=== PATIENT | female | born 1985 | race African-American/Black ===

== ENCOUNTER 2016-04-18 | Outpatient (CLI) | payer MEDICAID | END 2016-04-18 01:27 | disposition critical access hospital (66) | CPT/HCPCS: A0425; A0429 ==

== ENCOUNTER 2016-04-18 01:41 | Day surgery (SDC) | payer MEDICAID ==
[2016-04-18] MEDS ORDERED: ONDANSETRON 4 MG/2 ML VIAL IVP STA ×3 (02:47→07:32)
[2016-04-18] MEDS ORDERED: HYDROmorphone 1 MG/ML SYRINGE IVP STA ×3 (02:47→07:32)
[2016-04-18] MEDS ORDERED: ONDANSETRON 4 MG/2 ML VIAL ONE ×4 (03:19→13:21)
[2016-04-18] MEDS ORDERED: HYDROmorphone 1 MG/ML SYRINGE ONE ×3 (03:19→07:34)
[2016-04-18] MEDS ORDERED: IOPAMIDOL-300 100 ML VIAL IVP ONE (05:06)
[2016-04-18] MEDS ORDERED: LACTATED RINGERS 1,000 ML IV STA (07:38)
[2016-04-18] MEDS ORDERED: fentaNYL 100 MCG/2 ML VIAL IVP ONE (09:35)
[2016-04-18] MEDS ORDERED: ROCURONIUM 50 MG/5 ML VIAL IVP ONE (09:35)
[2016-04-18] MEDS ORDERED: DEXAMETHASONE 4 MG/ML VIAL IVP ONE (09:35)
[2016-04-18] MEDS ORDERED: SUCCINYLCHOLINE 200 MG/10 ML VIAL IVP ONE (09:35)
[2016-04-18] MEDS ORDERED: MIDAZOLAM 2 MG/2 ML VIAL IVP ONE (09:35)
[2016-04-18] MEDS ORDERED: GLYCOPYRROLATE 1 MG/5 ML VIAL IVP ONE (09:35)
[2016-04-18] MEDS ORDERED: LIDOCAINE-MPF 2% 5 ML VIAL IM ONE (09:35)
[2016-04-18] MEDS ORDERED: ONDANSETRON 4 MG/2 ML VIAL IVP ONE (09:35)
[2016-04-18] MEDS ORDERED: PROPOFOL 200 MG/20 ML VIAL IVP ONE (09:35)
[2016-04-18] MEDS ORDERED: LIDOCAINE MPF 1%-EPI 1:200000 30 ML VIAL SUBQ ONE (09:55)
[2016-04-18] MEDS ORDERED: LACTATED RINGERS 1,000 ML IV ONE ×4 (10:02→11:28)
[2016-04-18] MEDS: LORazepam 2 MG/ML SYRINGE ONE ×2 (10:48→10:55)
[2016-04-18] MEDS ORDERED: MEPERIDINE 50 MG/ML SYRINGE ONE (10:51)
[2016-04-18] MEDS ORDERED: ALBUTEROL NEB 2.5 MG/3 ML INH ONE (11:02)
[2016-04-18] MEDS ORDERED: HYDROcod/ACETAM 5/325 MG TABLET ONE (12:29)
== END 2016-04-18 07:31 | disposition home or self-care (01) ==
PROC: 0W3R4ZZ Control Bleeding in Genitourinary Tract, Percutaneous Endoscopic Approach (ICD-10-PCS; principal; 2016-04-18 08:45)
DX: N83.202 Unspecified ovarian cyst, left side (principal); K66.1 Hemoperitoneum; F17.200 Nicotine dependence, unspecified, uncomplicated; K59.00 Constipation, unspecified
CPT/HCPCS: 36415; 51702; 58662; 74177; 76830; 76856; 80053; 81003; 81025; 83690; 85025; 93975; 96374; 96375; 96376; 99284; 99285; A9270; J1170; J2060; J7120; J7613; Q9967

== ENCOUNTER 2016-07-16 12:43 | Outpatient (CLI) | payer MEDICAID, OTHER | END 2016-07-16 12:44 | disposition critical access hospital (66) | DX: M54.9 Dorsalgia, unspecified (principal); M25.512 Pain in left shoulder; M79.605 Pain in left leg; R20.0 Anesthesia of skin; V09.00XA Pedestrian injured in nontraffic accident involving unspecified motor vehicles, initial encounter; Y93.01 Activity, walking, marching and hiking; Y92.480 Sidewalk as the place of occurrence of the external cause | CPT/HCPCS: A0425; A0429 ==

== ENCOUNTER 2016-07-16 12:59 | Emergency (ER) | payer MEDICAID ==
[2016-07-16] MEDS ORDERED: HYDROcod/ACETAM 5/325 MG TABLET PO STA (13:50)
[2016-07-16] MEDS ORDERED: HYDROcod/ACETAM 5/325 MG TABLET ONE (13:58)
== END 2016-07-16 16:52 | disposition home or self-care (01) ==
DX: M54.2 Cervicalgia (principal); M54.5 Low back pain; R07.89 Other chest pain; M79.602 Pain in left arm; M79.605 Pain in left leg; R20.0 Anesthesia of skin; V03.90XA Pedestrian on foot injured in collision with car, pick-up truck or van, unspecified whether traffic or nontraffic accident, initial encounter; R03.0 Elevated blood-pressure reading, without diagnosis of hypertension; F17.200 Nicotine dependence, unspecified, uncomplicated
CPT/HCPCS: 36415; 72125; 72128; 72131; 72141; 73080; 73552; 80053; 83690; 84703; 85025; 85610; 99283; 99284; A9270

== ENCOUNTER 2018-06-12 20:58 | Emergency (ER) | payer MEDICAID ==
--- NOTE | 2018-06-12 21:21 | ED Physician Documentation ---
PD HPI URI - Stated complaint Stated Complaint: FLU SYMP - Chief complaint Chief Complaint: General - History obtained from History obtained from: Patient - History of Present Illness Timing - onset: How many weeks ago (2) Timing duration: Weeks (2) Timing details: Abrupt onset, Still present (Some symptoms are decreasing but still has some diarrhea and increasing cough. Today's feeling weaker and shaky and somewhat lightheaded at work.) Associated symptoms: Fever, Chills, Productive cough, NVD Contributing factors: No: Sick contact, Travel, Immunocompromised Similar symptoms before: Has not had sx before Recently seen: Not recently seen Review of Systems Constitutional: reports: Fever (decreasing), Chills, Myalgias Nose: reports: Congestion Throat: denies: Sore throat Respiratory: reports: Dyspnea, Cough. denies: Wheezing GI: reports: Nausea, Vomiting, Diarrhea PD PAST MEDICAL HISTORY - Past Medical History Cardiovascular: None Respiratory: None Neuro: None Endocrine/Autoimmune: None - Past Surgical History Past Surgical History: Yes - Present Medications Home Medications: Ambulatory Orders Medication Instructions Recorded Confirmed HYDROcod/ACETAM 5/325 [[place] 5/325] 1 - 2 ea PO Q6H PRN #15 tablet 07/16/16 Benzonatate [Tessalon Perle] 100 mg PO TID PRN #20 capsule 06/12/18 Dexamethasone [Decadron] 4 mg PO DAILY #5 tablet 06/12/18 Diphenoxylate/Atropine [Lomotil] 1 each PO QID PRN #20 tablet 06/12/18 Doxycycline Hyclate 100 mg PO BID #14 capsule 06/12/18 Ondansetron Odt [Zofran] 4 mg TL Q6H PRN #15 tablet 06/12/18 - Allergies Allergies/Adverse Reactions: Allergies Allergy/AdvReac Type Severity Reaction Status Date / Time ibuprofen AdvReac Unknown Verified 06/12/18 21:11 - Social History Does the pt smoke?: Yes Smoking Status: Current every day smoker Does the pt drink ETOH?: No Does the pt have substance abuse?: No - Immunizations Immunizations are current?: Yes PD ED PE NORMAL - Vitals Vital signs reviewed: Yes - General General: Alert and oriented X 3, No acute distress, Well developed/nourished - HEENT HEENT: Ears normal, Pharynx benign - Neck Neck: Supple, no meningeal sign, No adenopathy - Cardiac Cardiac: RRR, No murmur - Respiratory Respiratory: Clear bilaterally - Abdomen Abdomen: Soft, Non tender - Back Back: No CVA TTP - Derm Derm: Normal color, Warm and dry - Neuro Neuro: Alert and oriented X 3, No motor deficit, Normal speech Results - Vitals Vitals: Vital Signs - 24 hr 06/12/18 06/12/18 21:08 22:06 Temperature 37.0 C 37.0 C Heart Rate 77 74 Respiratory 18 14 Rate Blood Pressure 120/73 116/67 O2 Saturation 100 98 Oxygen O2 Source Room air - Labs Labs: Laboratory Tests 06/12/18 19:14 Influenza A (Rapid) Negative Influenza B (Rapid) Negative PD MEDICAL DECISION MAKING - ED course Complexity details: considered differential (Her symptoms sound predominantly like flu with the fevers achiness nausea and diarrhea. Those are tapering. However she has had a cough continuing to has increased with that over the last several days and is productive now. It sounds potentially like a secondary infection.), d/w patient Departure - Departure Disposition: 01 Home, Self Care Clinical Impression: Flu-like symptoms Bronchitis, acute Qualifiers: Bronchitis organism: unspecified organism Qualified Code(s): J20.9 - Acute bronchitis, unspecified Diarrhea Qualifiers: Diarrhea type: presumed infectious Qualified Code(s): R19.7 - Diarrhea, unspecified Condition: Stable Record reviewed to determine appropriate education?: Yes Instructions: ED Upper Resp Infec Abx Tx, ED Flu Follow-Up: Candice Key DNP [Primary Care Provider] - Prescriptions: Benzonatate [Tessalon Perle] 100 mg PO TID PRN #20 capsule PRN Reason: Cough Dexamethasone [Decadron] 4 mg PO DAILY #5 tablet Diphenoxylate/Atropine [Lomotil] 1 each PO QID PRN #20 tablet PRN Reason: Diarrhea Doxycycline Hyclate 100 mg PO BID #14 capsule Ondansetron Odt [Zofran] 4 mg TL Q6H PRN #15 tablet PRN Reason: Nausea / Vomiting Comments: Your main symptoms sound flulike. Your flu test here is negative but is not completely accurate and your symptoms still sound like the flu. As such treatment is largely supportive and targeted at symptoms. However your cough is been going on consistently enough longer than you expect for just the flu and so I think there may be some secondary infection causing the bronchial symptoms worsening. Your lungs sound clear and oxygen level is good, so does not sound like pneumonia. For the bronchial part of this, use the Decadron steroid anti-inflammatory as well as Tessalon if needed for cough. Will add doxycycline antibiotic for a week. Ondansetron if needed for nausea. Lomotil for diarrhea as needed. Rest off work for couple of days. Return as improving. Forms: Activity restrictions
[2018-06-12] MEDS ORDERED: ONDANSETRON ODT 4 MG TABLET TL STA (21:44)
[2018-06-12] MEDS ORDERED: DIPHENOX/ATROPINE 2.5/0.025 MG TABLET PO STA (21:44)
[2018-06-12] MEDS ORDERED: ONDANSETRON ODT 4 MG Prepack 2 TL PRN (21:44)
[2018-06-12] MEDS ORDERED: ACETAMINOPHEN 325 MG TABLET PO STA (21:44)
[2018-06-12] MEDS ORDERED: DEXAMETHASONE 10 MG/ML VIAL PO STA (21:44)
[2018-06-12] MEDS ORDERED: DOXYCYCLINE 100 MG TABLET PO STA (21:44)
[2018-06-12 22:07] VITALS: BP 116/67
== END 2018-06-12 22:26 | disposition home or self-care (01) ==
LOC: ED 20:58
DX: J20.9 Acute bronchitis, unspecified (principal); R19.7 Diarrhea, unspecified; R50.9 Fever, unspecified; R53.1 Weakness; R11.0 Nausea; F17.200 Nicotine dependence, unspecified, uncomplicated
CPT/HCPCS: 87275; 87276; 99283; A9270; Q0162

== ENCOUNTER 2018-11-07 10:11 | Outpatient (CLI) | payer MEDICAID ==
[2018-11-07 12:18] LABS: BASOPHILS # (AUTO) 0.1 10^3/uL (0.0-0.1); BASOPHILS % (AUTO) 0.8 %; EOSINOPHILS # (AUTO) 0.3 10^3/uL (0.0-0.7); EOSINOPHILS % (AUTO) 3.2 %; HGB - HEMOGLOBIN 14.2 g/dL (12.0-16.0); LYMPHOCYTES # (AUTO) 1.8 10^3/uL (1.5-3.5); LYMPHOCYTES % (AUTO) 23.5 %; MEAN CORPUSCULAR HEMOGLOBIN 31.7 pg (27.0-31.0); MEAN CORPUSCULAR HGB CONC 32.5 g/dL (32.0-36.0); MEAN CORPUSCULAR VOLUME 97.5 fL (81.0-99.0); MEAN PLATELET VOLUME 10.1 fL (7.9-10.8); MONOCYTES # (AUTO) 0.6 10^3/uL (0.0-1.0); NEUTROPHILS # (AUTO) 5.1 10^3/uL (1.5-6.6); NEUTROPHILS % (AUTO) 64.4 %; PLT - PLATELET COUNT 301 10^3/uL (130-450); RED BLOOD COUNT 4.48 10^6/uL (4.20-5.40); RED CELL DISTRIBUTION WIDTH 12.6 % (12.0-15.0); WHITE BLOOD COUNT 7.8 x10^3/uL (4.8-10.8)
[2018-11-07 12:53] LABS: ALBUMIN 4.3 g/dL (3.2-5.5); ALBUMIN/GLOBULIN RATIO 1.1 (1.0-2.2); ALKALINE PHOSPHATASE 70 IU/L (42-121); ALT ALANINE AMINOTRANSFERASE 14 IU/L (10-60); AST ASPARTATE AMINOTRANSFERASE 30 IU/L (10-42); BILIRUBIN,TOTAL 0.8 mg/dL (0.2-1.0); BUN - BLOOD UREA NITROGEN 5 mg/dL (6-20); CALCIUM 9.5 mg/dL (8.5-10.3); CARBON DIOXIDE - CO2 28 mmol/L (21-32); CHLORIDE 102 mmol/L (101-111); CHOL/HDL RATIO 2.2 (<4.4); CHOLESTEROL 164 mg/dL; CREATININE 0.9 mg/dL (0.4-1.0); GFR - MDRD 87 (>89); GLUCOSE 69 mg/dL (70-100); HDL CHOLESTEROL 75 mg/dL; LDL CHOLESTEROL,CALCULATED 73 mg/dL; SODIUM 143 mmol/L (135-145); TOTAL PROTEIN 8.1 g/dL (6.7-8.2); VLDL CHOLESTEROL 16 mg/dL
== END 2018-11-07 23:59 | disposition home or self-care (01) ==
LOC: LAB.N 10:11
PROVIDERS: ATTEND Nurse Practitioner Gerontology
DX: Z13.9 Encounter for screening, unspecified (principal)
CPT/HCPCS: 36415; 80053; 80061; 83721; 84443; 85025

== ENCOUNTER 2018-12-26 12:36 | Outpatient (CLI) | payer MEDICAID | END 2018-12-26 12:37 | disposition critical access hospital (66) | LOC: EMS 12:36 | PROVIDERS: ATTEND Surgery | DX: R45.851 Suicidal ideations (principal) | CPT/HCPCS: A0425; A0429; A0999 ==

== ENCOUNTER 2018-12-26 12:58 | Emergency (ER) | payer MEDICAID ==
--- NOTE | 2018-12-26 13:11 | ED Physician Documentation ---
PD HPI MHE - Stated complaint Stated Complaint: SI - History obtained from History obtained from: Patient, EMS - History of Present Illness Primary symptom: Suicide attempt (hanging with a belt in the closet) Timing - onset: How many hours ago (2) Pain level max: 0 Pain level now: 0 Similar symptoms before: Diagnosis (depression, bipolar) Recently seen: Not recently seen - Additional information Additional information: 33-year-old female states that she has been diagnosed with "stage III" depression. She also states that she has a history of bipolar disorder. She had a suicide attempt in 2008 when she was living in [place]. Attempted to take muscle relaxants. She moved here in 2013. Has a primary care provider, but has not seen a therapist or psychiatrist. She is on fluoxetine. She was home alone today when she attempted to hang herself using a belt in the closet. She states that she "may have blacked out". She states that she called 911 for help. Currently she does not feel safe and does not feel like she can keep herself safe. She has 2 children, 16 and 14. Lives with her boyfriend as well. Per police statement, the patient stated that she called 911 because it was "taking too long to kill herself". Patient also relates feeling homicidal tow ards the boyfriend and her children. She stated this to the nurse. She also states that she does not want to be here and wants to leave. Review of Systems Ten Systems: 10 systems reviewed and negative Constitutional: denies: Fever, Chills Ears: denies: Ear pain Nose: denies: Rhinorrhea / runny nose, Congestion Throat: denies: Sore throat Cardiac: denies: Chest pain / pressure Respiratory: denies: Cough GI: denies: Nausea, Vomiting, Diarrhea : denies: Dysuria, Now EGA Skin: denies: Rash Musculoskeletal: denies: Neck pain, Back pain Neurologic: denies: Focal weakness, Numbness, Headache PD PAST MEDICAL HISTORY - Past Medical History Cardiovascular: None Respiratory: None Neuro: None Endocrine/Autoimmune: None - Past Surgical History 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) - Present Medications Home Medications: Ambulatory Orders Medication Instructions Recorded Confirmed FLUoxetine [PROzac] 20 mg PO DAILY 12/26/18 12/26/18 - Allergies Allergies/Adverse Reactions: Allergies Allergy/AdvReac Type Severity Reaction Status Date / Time ibuprofen AdvReac Unknown Verified 12/26/18 13:15 - Social History Does the pt smoke?: Yes Smoking Status: Current every day smoker Does the pt drink ETOH?: No Does the pt have substance abuse?: No - Immunizations Immunizations are current?: Yes - POLST Patient has POLST: No PD ED PE NORMAL - Vitals Vital signs reviewed: Yes - General General: Alert and oriented X 3, No acute distress, Other (Tearful and anxious) - HEENT HEENT: PERRL, EOMI, Moist mucous membranes, Pharynx benign - Neck Neck: Supple, no meningeal sign, No JVD, No bruit, Other (Normal external examination of the neck) - Cardiac Cardiac: RRR, No murmur, Strong equal pulses - Respiratory Respiratory: No respiratory distress, Clear bilaterally - Abdomen Abdomen: Soft, Non tender, Non distended - Derm Derm: Warm and dry - Extremities Extremities: No edema - Neuro Neuro: Alert and oriented X 3 Results - Vitals Vitals: Vital Signs - 24 hr 12/26/18 13:03 Temperature 37 C Heart Rate 88 Respiratory 24 Rate Blood Pressure 147/119 H O2 Saturation 100 Oxygen O2 Source Room air - EKG (time done) 1318 Rate: Rate (enter#) (71) Rhythm: NSR [place]: Normal Intervals: Normal [place] QRS: Normal Ischemia: Normal ST segments - Labs Labs: Laboratory Tests 12/26/18 12/26/18 12/26/18 13:22 13:22 13:22 WBC 6.5 RBC 4.41 Hgb 14.1 Hct 42.9 MCV 97.3 MCH 32.0 H MCHC 32.9 RDW 12.0 Plt Count 294 MPV 9.1 Neut # (Auto) 3.9 Lymph # (Auto) 2.0 [place] # (Auto) 0.5 Eos # (Auto) 0.1 Baso # (Auto) 0.0 Absolute Nucleated RBC 0.00 Nucleated RBC % 0.0 Sodium 136 Potassium 3.7 Chloride 102 Carbon Dioxide 25 Anion Gap 9.0 BUN 7 Creatinine 0.9 Estimated GFR (MDRD) 87 L Glucose 87 Calcium 9.2 Total Bilirubin 0.5 AST 18 ALT 11 Alkaline Phosphatase 60 Total Protein 7.9 Albumin 4.3 Globulin 3.6 Albumin/Globulin Ratio 1.2 Lipase 29 TSH 0.82 Urine Color Urine Clarity Urine pH Ur Specific [place] Urine Protein Urine Glucose (UA) Urine Ketones Urine Occult Blood Urine Nitrite Urine Bilirubin Urine Urobilinogen Ur Leukocyte Esterase Ur Microscopic Review Urine Culture Comments Urine HCG, Qual Salicylates < 6.0 Urine Opiates Screen Ur Oxycodone Screen Urine Methadone Screen Ur Propoxyphene Screen Acetaminophen < 10 L Ur Barbiturates Screen Ur Tricyclics Screen Ur Phencyclidine Scrn Ur Amphetamine Screen U Methamphetamines Scrn U Benzodiazepines Scrn Urine Cocaine Screen U Cannabinoids Screen Ethyl Alcohol < 5.0 12/26/18 12/26/18 13:28 13:28 WBC RBC Hgb Hct MCV MCH MCHC RDW Plt Count MPV Neut # (Auto) Lymph # (Auto) [place] # (Auto) Eos # (Auto) Baso # (Auto) Absolute Nucleated RBC Nucleated RBC % Sodium Potassium Chloride Carbon Dioxide Anion Gap BUN Creatinine Estimated GFR (MDRD) Glucose Calcium Total Bilirubin AST ALT Alkaline Phosphatase Total Protein Albumin Globulin Albumin/Globulin Ratio Lipase TSH Urine Color YELLOW Urine Clarity CLEAR Urine pH 7.5 Ur Specific [place] 1.015 Urine Protein NEGATIVE Urine Glucose (UA) NEGATIVE Urine Ketones NEGATIVE Urine Occult Blood NEGATIVE Urine Nitrite NEGATIVE Urine Bilirubin NEGATIVE Urine Urobilinogen 0.2 (NORMAL) Ur Leukocyte Esterase NEGATIVE Ur Microscopic Review NOT INDICATED Urine Culture Comments NOT INDICATED Urine HCG, Qual NEGATIVE Salicylates Urine Opiates Screen NEGATIVE Ur Oxycodone Screen NEGATIVE Urine Methadone Screen NEGATIVE Ur Propoxyphene Screen NEGATIVE Acetaminophen Ur Barbiturates Screen NEGATIVE Ur Tricyclics Screen NEGATIVE Ur Phencyclidine Scrn NEGATIVE Ur Amphetamine Screen NEGATIVE U Methamphetamines Scrn NEGATIVE U Benzodiazepines Scrn NEGATIVE Urine Cocaine Screen POSITIVE H U Cannabinoids Screen POSITIVE H Ethyl Alcohol PD MEDICAL DECISION MAKING - ED course Complexity details: reviewed results, re-evaluated patient, considered differential, d/w patient, d/w family ED course: Patient is medically clear for psychiatric care. Social work was consulted and patient will go voluntarily to [facility] in [place]. Accepted by Dr. Verenice Rousseau. COBRA forms completed. This document was made in part using voice recognition software. While efforts are made to proofread this document, sound alike and grammatical errors may occur. Patient did receive 10 mg of Zyprexa in the emergency department which she took voluntarily. Departure - Departure Disposition: 65 Psych Hosp/Unit DC/Xfer Clinical Impression: Suicide attempt Depression Qualifiers: Depression Type: unspecified Qualified Code(s): F32.9 - Major depressive disorder, single episode, unspecified Condition: Stable
[2018-12-26 13:27] LABS: BASOPHILS % (AUTO) 0.5 %; EOSINOPHILS # (AUTO) 0.1 10^3/uL (0.0-0.7); EOSINOPHILS % (AUTO) 1.7 %; HGB - HEMOGLOBIN 14.1 g/dL (12.0-16.0); LYMPHOCYTES % (AUTO) 30.3 %; MEAN CORPUSCULAR HGB CONC 32.9 g/dL (32.0-36.0); MEAN CORPUSCULAR VOLUME 97.3 fL (81.0-99.0); MEAN PLATELET VOLUME 9.1 fL (7.9-10.8); MONOCYTES # (AUTO) 0.5 10^3/uL (0.0-1.0); MONOCYTES % (AUTO) 8.1 %; NEUTROPHILS # (AUTO) 3.9 10^3/uL (1.5-6.6); NEUTROPHILS % (AUTO) 59.1 %; PLT - PLATELET COUNT 294 10^3/uL (130-450); RED BLOOD COUNT 4.41 10^6/uL (4.20-5.40); WHITE BLOOD COUNT 6.5 x10^3/uL (4.8-10.8)
[2018-12-26 13:38] LABS: BILIRUBIN,URINE NEGATIVE (NEGATIVE); CLARITY,URINE CLEAR (CLEAR); GLUCOSE, URINE (UA) NEGATIVE (NEGATIVE); KETONES,URINE (UA) NEGATIVE (NEGATIVE); LEUKOCYTE ESTERASE, URINE NEGATIVE (NEGATIVE); NITRITE,URINE NEGATIVE (NEGATIVE); OCCULT BLOOD,URINE NEGATIVE (NEGATIVE); PH,URINE 7.5 PH (5.0-7.5); PROTEIN,URINE NEGATIVE (NEGATIVE); UROBILINOGEN,URINE 0.2 (NORMAL) E.U./dL (NORMAL)
[2018-12-26 13:39] LABS: HCG UR QUAL NEGATIVE
[2018-12-26 13:41] LABS: ACETAMINOPHEN < 10 ug/mL (10-30); ALBUMIN 4.3 g/dL (3.2-5.5); ALBUMIN/GLOBULIN RATIO 1.2 (1.0-2.2); ALKALINE PHOSPHATASE 60 IU/L (42-121); ALT ALANINE AMINOTRANSFERASE 11 IU/L (10-60); AST ASPARTATE AMINOTRANSFERASE 18 IU/L (10-42); BILIRUBIN,TOTAL 0.5 mg/dL (0.2-1.0); BUN - BLOOD UREA NITROGEN 7 mg/dL (6-20); CALCIUM 9.2 mg/dL (8.5-10.3); CARBON DIOXIDE - CO2 25 mmol/L (21-32); CHLORIDE 102 mmol/L (101-111); CREATININE 0.9 mg/dL (0.4-1.0); GFR - MDRD 87 (>89); GLUCOSE 87 mg/dL (70-100); LIPASE 29 U/L (22-51); SALICYLATE < 6.0 mg/dL; SODIUM 136 mmol/L (135-145); TOTAL PROTEIN 7.9 g/dL (6.7-8.2)
[2018-12-26 13:45] LABS: AMPHETAMINE SCREEN,URINE NEGATIVE (NEGATIVE); BENZODIAZEPINES SCREEN, URINE NEGATIVE (NEGATIVE); COCAINE SCREEN URINE POSITIVE (NEGATIVE); METHADONE SCREEN, URINE NEGATIVE (NEGATIVE); METHAMPHETAMINES SCREEN, URINE NEGATIVE (NEGATIVE); MUDS CUTOFF CONCENTRATIONS CUTOFF CONC BELOW:; OPIATE SCREEN, URINE NEGATIVE (NEGATIVE); OXYCODONE SCREEN, URINE NEGATIVE (NEGATIVE); PROPOXYPHENE SCREEN, URINE NEGATIVE (NEGATIVE); TRICYCLIC ANTIDEPRESSANT,URINE NEGATIVE (NEGATIVE)
[2018-12-26] MEDS ORDERED: OLANZapine ODT 5 MG TABLET TL ONE (16:14)
[2018-12-26 19:02] VITALS: BP 96/55
== END 2018-12-26 19:01 ==
LOC: EDUNIT# → ED 12:58
DX: T14.91XA Suicide attempt, initial encounter (principal); X83.8XXA Intentional self-harm by other specified means, initial encounter; F32.9 Major depressive disorder, single episode, unspecified; R45.850 Homicidal ideations; F17.200 Nicotine dependence, unspecified, uncomplicated
CPT/HCPCS: 36415; 80053; 80306; 80307; 80320; 80329; 81003; 81025; 83690; 84443; 85025; 93005; 99284; A9270; 81001; 87086

== ENCOUNTER 2019-06-22 20:02 | Emergency (ER) | payer MEDICAID ==
[2019-06-22 20:11] VITALS: BP 130/80
--- NOTE | 2019-06-22 20:13 | ED Physician Documentation ---
History of Present Illness - Stated complaint Stated Complaint: FACIAL SWELLING - Chief complaint Chief Complaint: Heent - History obtained from History obtained from: Patient - History of Present Illness Timing: How many days ago (4) Pain level now: 7 Improved by: nothing Worsened by: palpation - Additonal information Additional information: c/o 4 days of gradually enlarging, painful swelling left side of face. She says she has had similar episodes x few years which spontaneously improve but she feels there always remains a small, firm mass in the area. 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) - Present Medications Home Medications: Ambulatory Orders Medication Instructions Recorded Confirmed FLUoxetine [PROzac] 20 mg PO DAILY 12/26/18 12/26/18 Hydrocodone/Acetaminophen 1 - 2 each PO Q6H PRN #14 tablet 06/22/19 [Hydrocodon-Acetaminophen 5-325] Sulfamethox/Trimeth 800/160 1 each PO BID #14 tablet 06/22/19 [Bactrim Ds 800/160] - Allergies Allergies/Adverse Reactions: Allergies Allergy/AdvReac Type Severity Reaction Status Date / Time ibuprofen AdvReac Unknown Verified 06/22/19 20:08 - Social History Does the pt smoke?: Yes Smoking Status: Current every day smoker Does the pt drink ETOH?: No Does the pt have substance abuse?: No - Immunizations Immunizations are current?: Yes - POLST Patient has POLST: No PD ED PE NORMAL - Vitals Vital signs reviewed: Yes - General General: Alert and oriented X 3, No acute distress, Well developed/nourished PD ED PE EXPANDED - HEENT HEENT Visual: 1 - abscess (1.5 cm diameter flucuant, tender, erythematous mass c/w abscess) Results - Vitals Vitals: Vital Signs - 24 hr 06/22/19 20:08 Temperature 37.1 C Heart Rate 87 Respiratory 14 Rate Blood Pressure 130/80 O2 Saturation 98 Oxygen O2 Source Room air - Labs Labs: Microbiology 06/22/19 20:50 Wound Culture - Preliminary Abscess Procedures - Abscess I&D (location) Face left Preparation: Chlorhexadine, Lidocaine 1% Incision: Incised with scalpel, Purulent drainage, Culture obtained Other: Pt tolerated well, Dressing applied, Antibiotic prescribed PD MEDICAL DECISION MAKING - ED course Complexity details: considered differential, d/w patient Departure - Departure Disposition: Home, Self Care Clinical Impression: Facial abscess Condition: Good Instructions: ED Abscess IandD Follow-Up: Lindsay Tang ARNP [Primary Care Provider] - Within 1 week Prescriptions: Hydrocodone/Acetaminophen [Hydrocodon-Acetaminophen 5-325] 1 - 2 each PO Q6H PRN #14 tablet PRN Reason: pain Sulfamethox/Trimeth 800/160 [Bactrim Ds 800/160] 1 each PO BID #14 tablet Discharge Date/Time: 06/22/19 21:23
[2019-06-22] MEDS ORDERED: LIDOCAINE 1% 2 ML VIAL SUBQ STA (20:20)
[2019-06-22] MEDS ORDERED: HYDROcod/ACET 5/325 Prepack 4 PO STA (21:10)
[2019-06-22] MEDS ORDERED: SULFAMETH/TRIMETH DS 800/160 MG TABLET PO STA (21:10)
== END 2019-06-22 21:23 | disposition home or self-care (01) ==
LOC: ED 20:02
DX: L02.01 Cutaneous abscess of face (principal); F17.200 Nicotine dependence, unspecified, uncomplicated
CPT/HCPCS: 10060; 87070; 87205; 99283; A9270

== ENCOUNTER 2019-11-17 15:48 | Outpatient (CLI) | payer MEDICAID | END 2019-11-17 15:49 | disposition critical access hospital (66) | LOC: EMS 15:48 | PROVIDERS: ATTEND Surgery | DX: R07.9 Chest pain, unspecified (principal); R51 Headache | CPT/HCPCS: A0425; A0427; A0999 ==

== ENCOUNTER 2019-11-17 16:08 | Emergency (ER) | payer MEDICAID ==
[2019-11-17 16:26] LABS: BASOPHILS # (AUTO) 0.1 10^3/uL (0.0-0.1); BASOPHILS % (AUTO) 0.5 %; EOSINOPHILS # (AUTO) 0.2 10^3/uL (0.0-0.7); EOSINOPHILS % (AUTO) 1.7 %; HGB - HEMOGLOBIN 13.2 g/dL (12.0-16.0); LYMPHOCYTES # (AUTO) 2.5 10^3/uL (1.5-3.5); LYMPHOCYTES % (AUTO) 25.3 %; MEAN CORPUSCULAR HGB CONC 33.3 g/dL (32.0-36.0); MEAN CORPUSCULAR VOLUME 96.1 fL (81.0-99.0); MEAN PLATELET VOLUME 9.3 fL (7.9-10.8); MONOCYTES # (AUTO) 0.9 10^3/uL (0.0-1.0); MONOCYTES % (AUTO) 8.6 %; NEUTROPHILS # (AUTO) 6.3 10^3/uL (1.5-6.6); NEUTROPHILS % (AUTO) 63.6 %; PLT - PLATELET COUNT 261 10^3/uL (130-450); RED BLOOD COUNT 4.12 10^6/uL (4.20-5.40); RED CELL DISTRIBUTION WIDTH 13.2 % (12.0-15.0)
[2019-11-17] MEDS ORDERED: LIDOCAINE VISCOUS 2% 15 ML UDC MM STA (16:32)
[2019-11-17] MEDS ORDERED: MAG HYDROX/AL HYDROX/SIMETH 30 ML UDC PO STA (16:32)
--- NOTE | 2019-11-17 16:32 | ED Physician Documentation ---
History of Present Illness - Stated complaint Stated Complaint: CP - Additonal information Additional information: 34-year-old female brought to the emergency department via EMS for evaluation of chest pain. She was at her primary care office this morning requesting a refill of her fluoxetine famotidine and hydroxyzine. While there she developed epigastric pain that radiates up her throat and into her mouth. She states that she has been having this pain since she woke up with this a.m. EMS gave her nitroglycerin and 325 of aspirin without relief of pain. Patient reports that she is a 1/2/pack daily tobacco user. She denies any previous history of MT. She describes the pain as sharp. She denies pressure- like pain or radiation to the arm and jaw. Pain is not worse with exertion. She has had no nausea or vomiting but she does endorse some intermittent constipation and then diarrhea. pt states that she has been out of her fluoxetine for 5 days, famotidine for 9 months and hydroxizine for 3 months Review of Systems Constitutional: denies: Fever, Chills, Myalgias Eyes: denies: Decreased vision, Photophobia Ears: denies: Loss of hearing, Ear pain Nose: denies: Rhinorrhea / runny nose, Congestion, Epistaxis Throat: denies: Dental pain / toothache, Oral lesions / sores Cardiac: reports: Chest pain / pressure. denies: Palpitations, Pedal edema, Calf pain Respiratory: denies: Dyspnea GI: reports: Constipation, Diarrhea. denies: Abdominal Pain, Abdominal Swelling, Nausea, Vomiting, Hematemesis, Bloody / black stool : denies: Dysuria, Frequency, Hesitancy Skin: denies: Rash, Lesions Musculoskeletal: denies: Neck pain, Back pain, Joint pain, Extremity swelling Neurologic: denies: Generalized weakness, Focal weakness, Syncope, Seizure, Confused, Headache Psychiatric: reports: Depressed. 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) - Present Medications Home Medications: Ambulatory Orders Medication Instructions Recorded Confirmed FLUoxetine [PROzac] 20 mg PO DAILY 12/26/18 12/26/18 Hydrocodone/Acetaminophen 1 - 2 each PO Q6H PRN #14 tablet 06/22/19 [Hydrocodon-Acetaminophen 5-325] Sulfamethox/Trimeth 800/160 1 each PO BID #14 tablet 06/22/19 [Bactrim Ds 800/160] Famotidine 20 mg PO DAILY #30 tablet 11/17/19 Fluoxetine HCl 40 mg PO DAILY #30 capsule 11/17/19 hydrOXYzine HCL [Hydroxyzine HCl] 25 mg PO BID PRN #20 tablet 11/17/19 - Allergies Allergies/Adverse Reactions: Allergies Allergy/AdvReac Type Severity Reaction Status Date / Time ibuprofen AdvReac Unknown Verified 11/17/19 16:18 - Social History Does the pt smoke?: Yes Smoking Status: Current every day smoker Does the pt drink ETOH?: No Does the pt have substance abuse?: No - Immunizations Immunizations are current?: Yes - POLST Patient has POLST: No PD ED PE NORMAL - General General: Alert and oriented X 3, No acute distress, Well developed/nourished - HEENT HEENT: Atraumatic, EOMI, Ears normal, Moist mucous membranes, Pharynx benign - Neck Neck: Supple, no meningeal sign, No adenopathy, Thyroid normal - Cardiac Cardiac: RRR, No murmur, No gallop, No rub - Respiratory Respiratory: No respiratory distress, Clear bilaterally - Abdomen Abdomen: Normal bowel sounds, Soft, Non distended. No: Non tender (mild epigastric tenderness withotu radiation. 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, No motor deficit, No sensory deficit Eye Opening: Spontaneous Motor: Obeys Commands Verbal: Oriented GCS Score: 15 Results - Vitals Vitals: Vital Signs - 24 hr 11/17/19 16:08 Temperature 37.1 C Heart Rate 66 Respiratory 18 Rate Blood Pressure 123/79 O2 Saturation 100 Oxygen O2 Source Room air - EKG (time done) 1615 Rate: Rate (enter#) (62) Rhythm: NSR [place]: Normal Intervals: Normal [place] QRS: Normal, LVH Ischemia: Normal ST segments Compare to prior EKG: Unchanged from prior EKG Computer interpretation: Agree with computer - Labs Labs: Laboratory Tests 0911/17/19 11/17/19 16:18 16:18 16:18 WBC 10.0 RBC 4.12 L Hgb 13.2 Hct 39.6 MCV 96.1 MCH 32.0 H MCHC 33.3 RDW 13.2 Plt Count 261 MPV 9.3 Neut # (Auto) 6.3 Lymph # (Auto) 2.5 [place] # (Auto) 0.9 Eos # (Auto) 0.2 Baso # (Auto) 0.1 Absolute Nucleated RBC 0.00 Nucleated RBC % 0.0 Sodium 135 Potassium 3.7 Chloride 100 L Carbon Dioxide 26 Anion Gap 9.0 BUN 8 Creatinine 0.8 Estimated GFR (MDRD) 100 Glucose 90 Calcium 9.0 Total Bilirubin 0.5 AST 17 ALT 10 Alkaline Phosphatase 61 Troponin I High Sens < 2.3 L Total Protein 7.2 Albumin 4.3 Globulin 2.9 Albumin/Globulin Ratio 1.5 Lipase 31 Urine Color Urine Clarity Urine pH Ur Specific [place] Urine Protein Urine Glucose (UA) Urine Ketones Urine Occult Blood Urine Nitrite Urine Bilirubin Urine Urobilinogen Ur Leukocyte Esterase Ur Microscopic Review Urine Culture Comments Urine HCG, Qual 11/17/19 16:30 WBC RBC Hgb Hct MCV MCH MCHC RDW Plt Count MPV Neut # (Auto) Lymph # (Auto) [place] # (Auto) Eos # (Auto) Baso # (Auto) Absolute Nucleated RBC Nucleated RBC % Sodium Potassium Chloride Carbon Dioxide Anion Gap BUN Creatinine Estimated GFR (MDRD) Glucose Calcium Total Bilirubin AST ALT Alkaline Phosphatase Troponin I High Sens Total Protein Albumin Globulin Albumin/Globulin Ratio Lipase Urine Color YELLOW Urine Clarity CLEAR Urine pH 7.5 Ur Specific [place] 1.015 Urine Protein NEGATIVE Urine Glucose (UA) NEGATIVE Urine Ketones NEGATIVE Urine Occult Blood NEGATIVE Urine Nitrite NEGATIVE Urine Bilirubin NEGATIVE Urine Urobilinogen 0.2 (NORMAL) Ur Leukocyte Esterase NEGATIVE Ur Microscopic Review NOT INDICATED Urine Culture Comments NOT INDICATED Urine HCG, Qual NEGATIVE - Rads (name of study) CXR Radiology: Final report received (No acute cardiopulmonary process), EMP read indepedently PD MEDICAL DECISION MAKING - ED course Complexity details: reviewed results, re-evaluated patient, considered differential, d/w patient, d/w family ED course: 34-year-old female who has a history of heavy tobaccoism presents to the emergency department with chief complaint of epigastric and chest pain. She states that she has had this intermittently for 10 years but it was worse this morning when she woke up. Pain radiates from her epigastrium up her throat and into her mouth. She does report that she has been out of certain medications namely her famotidine for about 10 months. I have low suspicion for ACS. Her EKG is nonischemic and unchanged from recent. In addition her high-sensitivity troponin is negative. Her chest x-ray shows no acute cardiopulmonary process no infiltrates. Her Wells score is negative. I have very little suspicion for PE. I did give her some Maalox and lidocaine elixir which did resolve some of the pain but did not fully jaun it. I will refill her famotidine and advise very close follow-up with her primary care doctor Departure - Departure Disposition: 01 Home, Self Care Clinical Impression: Epigastric pain, Medication refill Chest pain Qualifiers: Chest pain type: unspecified Qualified Code(s): R07.9 - Chest pain, unspecified Condition: Stable Record reviewed to determine appropriate education?: Yes Prescriptions: Famotidine 20 mg PO DAILY #30 tablet Fluoxetine HCl 40 mg PO DAILY #30 capsule hydrOXYzine HCL [Hydroxyzine HCl] 25 mg PO BID PRN #20 tablet PRN Reason: Anxiety Comments: I have refilled your fluoxetine, famotidine and hydroxyzine. Your labs today are essentially on room workable. Your blood count liver function tests and kidney tests are all normal. Your urine shows no signs of infection. Your chest x-ray is normal. Your EKG and troponin are also normal. I suspect that your chest pain may actually be acid reflux or peptic ulcer disease as you have not been taking the famotidine. Please discuss this with your primary care doctor to determine if you would benefit from further evaluation or referral to a gastrointestinal doctor.
[2019-11-17 16:39] LABS: ALBUMIN 4.3 g/dL (3.2-5.5); ALBUMIN/GLOBULIN RATIO 1.5 (1.0-2.2); BILIRUBIN,TOTAL 0.5 mg/dL (0.2-1.0); CREATININE 0.8 mg/dL (0.4-1.0); TOTAL PROTEIN 7.2 g/dL (6.7-8.2)
[2019-11-17 16:46] LABS: BILIRUBIN,URINE NEGATIVE (NEGATIVE); GLUCOSE, URINE (UA) NEGATIVE (NEGATIVE); KETONES,URINE (UA) NEGATIVE (NEGATIVE); LEUKOCYTE ESTERASE, URINE NEGATIVE (NEGATIVE); NITRITE,URINE NEGATIVE (NEGATIVE); OCCULT BLOOD,URINE NEGATIVE (NEGATIVE); PH,URINE 7.5 PH (5.0-7.5); PROTEIN,URINE NEGATIVE (NEGATIVE); UROBILINOGEN,URINE 0.2 (NORMAL) E.U./dL (NORMAL)
[2019-11-17 16:48] LABS: CLARITY,URINE CLEAR (CLEAR)
[2019-11-17 16:50] LABS: HCG UR QUAL NEGATIVE
--- NOTE | 2019-11-17 17:14 | XRAY Report ---
PROCEDURE: Chest 1 View X-Ray INDICATIONS: Chest Pain TECHNIQUE: One view of the chest was acquired. COMPARISON: None. FINDINGS: Surgical changes and devices: None. Lungs and pleura: No pleural effusions or pneumothorax. Lungs are clear. Mediastinum: Mediastinal contours appear normal. Heart size is normal. Bones and chest wall: No suspicious bony lesions. Overlying soft tissues appear unremarkable. IMPRESSION: No acute cardiopulmonary abnormality. Reviewed by: Maciej Patten MD on 11/17/2019 4:13 PM [place]AN[place] Approved by: Maciej Patten MD on 11/17/2019 4:13 PM [place] Station ID: [id number]
[2019-11-17 17:22] VITALS: BP 126/89
== END 2019-11-17 17:22 | disposition home or self-care (01) ==
LOC: EDUNIT# → ED 16:08
DX: R07.9 Chest pain, unspecified (principal); R10.13 Epigastric pain; T47.0X6A Underdosing of histamine H2-receptor blockers, initial encounter; Z76.0 Encounter for issue of repeat prescription; F17.210 Nicotine dependence, cigarettes, uncomplicated
CPT/HCPCS: 36415; 71045; 80053; 81003; 81025; 83690; 84484; 85025; 93005; 99284; A9270; 81001; 87086

== ENCOUNTER 2020-03-30 14:19 | Outpatient (CLI) | payer MEDICAID ==
[2020-03-30 18:10] LABS: BASOPHILS % (AUTO) 0.4 %; EOSINOPHILS # (AUTO) 0.2 10^3/uL (0.0-0.7); EOSINOPHILS % (AUTO) 2.2 %; HGB - HEMOGLOBIN 14.3 g/dL (12.0-16.0); LYMPHOCYTES % (AUTO) 21.5 %; MEAN CORPUSCULAR HEMOGLOBIN 31.8 pg (27.0-31.0); MEAN CORPUSCULAR HGB CONC 32.8 g/dL (32.0-36.0); MEAN CORPUSCULAR VOLUME 96.9 fL (81.0-99.0); MEAN PLATELET VOLUME 10.2 fL (7.9-10.8); MONOCYTES # (AUTO) 0.6 10^3/uL (0.0-1.0); MONOCYTES % (AUTO) 6.9 %; NEUTROPHILS # (AUTO) 6.3 10^3/uL (1.5-6.6); NEUTROPHILS % (AUTO) 68.7 %; PLT - PLATELET COUNT 302 10^3/uL (130-450); WHITE BLOOD COUNT 9.2 x10^3/uL (4.8-10.8)
[2020-03-30 18:31] LABS: ALBUMIN/GLOBULIN RATIO 1.2 (1.0-2.2); ALKALINE PHOSPHATASE 66 IU/L (42-121); ALT ALANINE AMINOTRANSFERASE 13 IU/L (10-60); AST ASPARTATE AMINOTRANSFERASE 19 IU/L (10-42); BILIRUBIN,TOTAL 0.8 mg/dL (0.2-1.0); BUN - BLOOD UREA NITROGEN 8 mg/dL (6-20); CALCIUM 8.9 mg/dL (8.5-10.3); CARBON DIOXIDE - CO2 25 mmol/L (21-32); CHLORIDE 105 mmol/L (101-111); CHOL/HDL RATIO 2.7 (<4.4); CHOLESTEROL 189 mg/dL; CREATININE 0.7 mg/dL (0.4-1.0); GLUCOSE 103 mg/dL (70-100); HDL CHOLESTEROL 71 mg/dL; LDL CHOLESTEROL,CALCULATED 96 mg/dL; LDL/HDL RATIO 1.4 (<4.4); SODIUM 135 mmol/L (135-145); TOTAL PROTEIN 7.4 g/dL (6.7-8.2); VLDL CHOLESTEROL 22 mg/dL
== END 2020-03-30 23:59 | disposition home or self-care (01) ==
LOC: LAB.WCP 14:19
PROVIDERS: ATTEND Nurse Practitioner Family
DX: Z13.9 Encounter for screening, unspecified (principal)
CPT/HCPCS: 36415; 80053; 80061; 83721; 84443; 85025

== ENCOUNTER 2020-04-27 07:29 | Emergency (ER) | payer MEDICAID ==
[2020-04-27] MEDS ORDERED: SULFAMETH/TRIMETH DS 800/160 MG TABLET PO STA (08:31)
[2020-04-27] MEDS ORDERED: KETOROLAC 30 MG/ML VIAL IM STA (08:31)
[2020-04-27] MEDS ORDERED: BUFFERED LIDOCAINE 10 ML SYRINGE IU ONE (08:31)
--- NOTE | 2020-04-27 08:36 | ED Physician Documentation ---
History of Present Illness - Stated complaint Stated Complaint: FEMALE - Chief complaint Chief Complaint: General - History obtained from History obtained from: Patient - Additonal information Additional information: Patient comes emergency department chief complaint of "boil on my vaginal area". Patient states that she has occasionally gotten infected hair follicles in her perineal area, but that this 1 seems to gotten bigger then most. She states that she had not had sexual intercourse in a while, and that a few days ago she did. It was after that that she began to notice that the area was beginning to become swollen and painful. She states that today, seems to be bulging more than it was yesterday. Patient denies any drainage from the area. No fevers or chills. No other complaints at this time. Review of Systems Ten Systems: 10 systems reviewed and negative Constitutional: reports: Reviewed and negative Eyes: reports: Reviewed and negative Ears: reports: Reviewed and negative Nose: reports: Reviewed and negative Throat: reports: Reviewed and negative Cardiac: reports: Reviewed and negative Respiratory: reports: Reviewed and negative GI: reports: Reviewed and negative : reports: Other (Genital mass) Skin: reports: Other (Abscess) Musculoskeletal: reports: Reviewed and negative Neurologic: reports: Reviewed and negative Psychiatric: reports: Reviewed and negative Endocrine: reports: Reviewed and negative Immunocompromised: reports: Reviewed and negative PD PAST MEDICAL HISTORY - Past Medical History Cardiovascular: None Respiratory: None Neuro: None Endocrine/Autoimmune: None Psych: Depression, Anxiety - Past Surgical History 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) - Present Medications Home Medications: Ambulatory Orders Medication Instructions Recorded Confirmed Famotidine 20 mg PO DAILY #30 tablet 11/17/19 Fluoxetine HCl 40 mg PO DAILY #30 capsule 11/17/19 hydrOXYzine HCL [Hydroxyzine HCl] 25 mg PO BID PRN #20 tablet 11/17/19 HYDROcod/ACETAM 5/325 [[place] 5/325] 1 - 2 ea PO Q6H PRN #15 04/27/20 Sulfamethox/Trimeth 800/160 1 each PO BID #14 tab 04/27/20 [Bactrim Ds 800/160] - Allergies Allergies/Adverse Reactions: Allergies Allergy/AdvReac Type Severity Reaction Status Date / Time ibuprofen AdvReac Unknown Verified 11/17/19 16:18 - Social History Does the pt smoke?: Yes Smoking Status: Current every day smoker Does the pt drink ETOH?: No Does the pt have substance abuse?: No - Immunizations Immunizations are current?: Yes - POLST Patient has POLST: No PD ED PE NORMAL - Vitals Vital signs reviewed: Yes - General General: Alert and oriented X 3, No acute distress - HEENT HEENT: Atraumatic, PERRL, EOMI, Moist mucous membranes - Neck Neck: Supple, no meningeal sign - Respiratory Respiratory: No respiratory distress - Female Female : Other (Well female genitalia. Pubic hair is not shaved. A 2.5 cm abscess is noted at the anterolateral right Pubic area. Fluctuance is noted. No drainage. No apical opening.) - Derm Derm: Normal color, Warm and dry, Other (Abscess in genital area as noted above. No other lesions.) - Extremities Extremities: No deformity - Neuro Neuro: Alert and oriented X 3 - Psych Psych: Normal mood, Normal affect Results - Vitals Vitals: Oxygen O2 Source Room air Procedures - Abscess I&D (location) groin Preparation: Betadine Incision: Incised with scalpel, Purulent drainage, Irrigated, Packed Other: Pt tolerated well, Dressing applied, Antibiotic prescribed PD MEDICAL DECISION MAKING - ED course Complexity details: considered differential, d/w patient ED course: Pt was driving herself, so she was given a dose of Toradol. She was also given a dose of Bactrim as well. Abscess was I&D'd as above. I have prescribed Bactrim and Vicodin. We have discussed the need for packing removal and wound check in 2-3 days. We have discussed the usual indications for return. Departure - Departure Disposition: 01 Home, Self Care Clinical Impression: Inguinal abscess Condition: Stable Instructions: ED Abscess IandD Prescriptions: Sulfamethox/Trimeth 800/160 [Bactrim Ds 800/160] 1 each PO BID #14 tab HYDROcod/ACETAM 5/325 [[place] 5/325] 1 - 2 ea PO Q6H PRN #15 PRN Reason: Pain Comments: These keep the area of your abscess clean and dry until the wound begins to heal and scab over. The gauze packing that has been placed within the wound should be left in for the next 2 to 3 days, after which it should be removed. You may have the wound checked by your doctor at that time. Generally, between antibiotics and the couple of days of packing, this is enough to prevent the abscess from forming again. Please take the antibiotics twice a day, as pre scribed. You may take the pain medication as needed, as well. You have been given a note for today, tomorrow and the next day off of work; if you are feeling well enough on Saturday to go back, you may. Forms: Activity restrictions Discharge Date/Time: 04/27/20 09:50
[2020-04-27 10:02] VITALS: BP 110/70
== END 2020-04-27 09:50 | disposition home or self-care (01) ==
LOC: ED 07:29
DX: L02.215 Cutaneous abscess of perineum (principal); F17.200 Nicotine dependence, unspecified, uncomplicated
CPT/HCPCS: 56405; 96372; 99283; 99284; A9270

== ENCOUNTER 2020-05-26 08:00 | Outpatient (CLI) | payer MEDICAID | END 2020-05-26 23:59 | disposition home or self-care (01) | LOC: LAB.R 08:00 | PROVIDERS: ATTEND Family Medicine | DX: R05 Cough (principal); Z20.822 Contact with and (suspected) exposure to COVID-19 ==

== ENCOUNTER 2020-06-10 11:39 | Outpatient (CLI) | payer MEDICAID | END 2020-06-10 11:40 | disposition critical access hospital (66) | LOC: EMS 11:39 | PROVIDERS: ATTEND Registered Nurse | DX: R45.851 Suicidal ideations (principal); R44.0 Auditory hallucinations; R44.1 Visual hallucinations | CPT/HCPCS: A0425; A0429; A0999 ==

== ENCOUNTER 2020-06-10 12:00 | Emergency (ER) | payer MEDICAID ==
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
[2020-06-10 12:29] LABS: MUDS CUTOFF CONCENTRATIONS CUTOFF CONC BELOW:
[2020-06-10 12:34] LABS: BILIRUBIN,URINE NEGATIVE (NEGATIVE); GLUCOSE, URINE (UA) NEGATIVE (NEGATIVE); KETONES,URINE (UA) NEGATIVE (NEGATIVE); LEUKOCYTE ESTERASE, URINE NEGATIVE (NEGATIVE); NITRITE,URINE NEGATIVE (NEGATIVE); OCCULT BLOOD,URINE NEGATIVE (NEGATIVE); PROTEIN,URINE NEGATIVE (NEGATIVE); UROBILINOGEN,URINE 0.2 (NORMAL) E.U./dL (NORMAL)
[2020-06-10 12:37] LABS: CLARITY,URINE HAZY (CLEAR); HCG UR QUAL NEGATIVE
[2020-06-10 12:45] LABS: AMPHETAMINE SCREEN,URINE NEGATIVE (NEGATIVE); BACTERIA,URINE Rare /HPF (None Seen); BARBITURATE SCREEN,UR NEGATIVE (NEGATIVE); BENZODIAZEPINES SCREEN, URINE NEGATIVE (NEGATIVE); COCAINE SCREEN URINE NEGATIVE (NEGATIVE); METHADONE SCREEN, URINE NEGATIVE (NEGATIVE); METHAMPHETAMINES SCREEN, URINE NEGATIVE (NEGATIVE); OPIATE SCREEN, URINE NEGATIVE (NEGATIVE); OXYCODONE SCREEN, URINE NEGATIVE (NEGATIVE); PROPOXYPHENE SCREEN, URINE NEGATIVE (NEGATIVE); RBC,URINE None Seen /HPF (0-5); SQUAMOUS EPITHELIAL CELL,UR MOD Squamous (<= Few); THC CANNABINOID SCREEN, URINE POSITIVE (NEGATIVE); TRICYCLIC ANTIDEPRESSANT,URINE NEGATIVE (NEGATIVE); WBC,URINE 0-3 /HPF (0-5)
[2020-06-10 12:54] LABS: BASOPHILS % (AUTO) 0.5 %; EOSINOPHILS # (AUTO) 0.2 10^3/uL (0.0-0.7); HCT - HEMATOCRIT 41.7 % (37.0-47.0); HGB - HEMOGLOBIN 13.4 g/dL (12.0-16.0); LYMPHOCYTES # (AUTO) 2.3 10^3/uL (1.5-3.5); LYMPHOCYTES % (AUTO) 27.4 %; MEAN CORPUSCULAR HEMOGLOBIN 31.5 pg (27.0-31.0); MEAN CORPUSCULAR HGB CONC 32.1 g/dL (32.0-36.0); MEAN CORPUSCULAR VOLUME 98.1 fL (81.0-99.0); MEAN PLATELET VOLUME 9.4 fL (7.9-10.8); MONOCYTES # (AUTO) 0.4 10^3/uL (0.0-1.0); MONOCYTES % (AUTO) 5.2 %; NEUTROPHILS # (AUTO) 5.5 10^3/uL (1.5-6.6); NEUTROPHILS % (AUTO) 64.7 %; PLT - PLATELET COUNT 289 10^3/uL (130-450); RED BLOOD COUNT 4.25 10^6/uL (4.20-5.40); RED CELL DISTRIBUTION WIDTH 12.8 % (12.0-15.0); WHITE BLOOD COUNT 8.5 x10^3/uL (4.8-10.8)
[2020-06-10 13:12] LABS: ACETAMINOPHEN < 10 ug/mL (10-30); ALBUMIN 4.5 g/dL (3.2-5.5); ALBUMIN/GLOBULIN RATIO 1.4 (1.0-2.2); ALKALINE PHOSPHATASE 63 IU/L (42-121); ALT ALANINE AMINOTRANSFERASE 16 IU/L (10-60); AST ASPARTATE AMINOTRANSFERASE 21 IU/L (10-42); BILIRUBIN,TOTAL 0.7 mg/dL (0.2-1.0); BUN - BLOOD UREA NITROGEN 7 mg/dL (6-20); CALCIUM 9.1 mg/dL (8.5-10.3); CARBON DIOXIDE - CO2 25 mmol/L (21-32); CHLORIDE 103 mmol/L (101-111); CREATININE 0.7 mg/dL (0.4-1.0); ETOH - ETHANOL < 5.0 mg/dL; GFR - MDRD 116 (>89); GLUCOSE 91 mg/dL (70-100); LIPASE 22 U/L (22-51); POTASSIUM 3.8 mmol/L (3.5-5.0); SALICYLATE < 6.0 mg/dL; SODIUM 136 mmol/L (135-145); TOTAL PROTEIN 7.7 g/dL (6.7-8.2)
[2020-06-10 13:24] LABS: CORONAVIRUS 229E-RESP PCR NOT DETECTED; CORONAVIRUS HKU1-RESP PCR NOT DETECTED; CORONAVIRUS NL63-RESP PCR NOT DETECTED; CORONAVIRUS OC43-RESP PCR NOT DETECTED; HUMAN METAPNEUMOVIRUS NOT DETECTED; RHINOVIRUS/ENTEROVIRUS NOT DETECTED; SARS-CoV-2 -RESP PCR PANEL NOT DETECTED
[2020-06-10 13:25] LABS: B. PARAPERTUSSIS- RESP PCR PAN NOT DETECTED; B. PERTUSSIS- RESP PCR PANEL NOT DETECTED; C. PNEUMONIAE- RESP PCR PANEL NOT DETECTED; INFLUENZA A- RESP PCR PANEL NOT DETECTED; INFLUENZA B - RESP PCR PANEL NOT DETECTED; M. PNEUMONIAE- RESP PCR PANEL NOT DETECTED; PARAINFLUENZA VIRUS 1 NOT DETECTED; PARAINFLUENZA VIRUS 2 NOT DETECTED; PARAINFLUENZA VIRUS 3 NOT DETECTED; PARAINFLUENZA VIRUS 4 NOT DETECTED; RSV- RESP PCR PANEL NOT DETECTED
[2020-06-10] MEDS ORDERED: LIDOCAINE VISCOUS 2% 15 ML UDC MM STA (14:42)
[2020-06-10] MEDS ORDERED: ACETAMINOPHEN 325 MG TABLET PO STA (14:57)
[2020-06-10 18:11] VITALS: BP 127/83
== END 2020-06-10 18:59 ==
LOC: MERGE 12:00 → ED 12:00
DX: F32.3 Major depressive disorder, single episode, severe with psychotic features (principal); Z20.822 Contact with and (suspected) exposure to COVID-19
CPT/HCPCS: 0202U; 36415; 80053; 80306; 80307; 80320; 80329; 81001; 81025; 83690; 84443; 85025; 93005; 99284; 99285; A9270; 81003; 87086

== ENCOUNTER 2020-08-16 08:00 | Outpatient (CLI) | payer MEDICAID ==
[2020-08-16 19:12] LABS: HCG,QUALITATIVE BLOOD NEGATIVE
== END 2020-08-16 23:59 | disposition home or self-care (01) ==
LOC: LAB.N 08:00
PROVIDERS: ATTEND Family Medicine
DX: R11.0 Nausea (principal); Z20.822 Contact with and (suspected) exposure to COVID-19
CPT/HCPCS: 36415; 84703

== ENCOUNTER 2020-09-14 13:17 | Outpatient (CLI) | payer MEDICAID ==
--- NOTE | 2020-09-14 13:58 | XRAY Report ---
PROCEDURE: Cervical Spine 2 View INDICATIONS: L SIDE NECK PX TECHNIQUE: 4 view(s) of the cervical spine were acquired. COMPARISON: None. FINDINGS: Bones: No fractures or dislocations to the C7-T1 level. Straightening of normal cervical lordosis i s seen. Degenerative endplate changes are noted at C4-5 and C5-6 levels. The lateral masses of C1 charbel ear intact on the odontoid view. No suspicious bony lesions. Soft tissues: No prevertebral soft tissue swelling. IMPRESSION: Degenerative disc disease at C4-5 and C5-6 level. No fracture or dislocation. Reviewed by: Benji Mckoy MD on 09/14/2020 1:57 PM PDT Approved by: Benji Mckoy MD on 09/14/2020 1:57 PM PDT Station ID: [id number]
== END 2020-09-14 23:59 | disposition home or self-care (01) ==
LOC: DI.N 13:17
PROVIDERS: ATTEND Physician Assistant Medical
DX: M50.121 Cervical disc disorder at C4-C5 level with radiculopathy (principal)

== ENCOUNTER 2020-10-21 18:58 | Outpatient (CLI) | payer MEDICAID | END 2020-10-21 18:59 | disposition critical access hospital (66) | LOC: EMS 18:58 | DX: K62.89 Other specified diseases of anus and rectum (principal) | CPT/HCPCS: A0425; A0427; A0999 ==

== ENCOUNTER 2020-10-21 19:20 | Emergency (ER) | payer MEDICAID ==
[2020-10-21] MEDS ORDERED: LORazepam 1 MG TABLET PO STA (19:37)
[2020-10-21] MEDS ORDERED: KETOROLAC 15 MG/ML VIAL IVP STA (19:37)
[2020-10-21] MEDS ORDERED: LIDOCAINE JELLY 2% 6 ML JEL.PF.APP TOP STA (19:38)
--- NOTE | 2020-10-21 19:48 | ED Physician Documentation ---
History of Present Illness - Stated complaint Stated Complaint: Hemorrhoid PAIN - Chief complaint Chief Complaint: General - History obtained from History obtained from: Patient - Additonal information Additional information: 35-year-old woman with recent hemorrhoids that formed 4 days ago presents with severe pain since that time, acutely worsening today. She is seen in clinic because she was try to have a bowel movement and experienced severe pain that was sudden in onset. She checked and where there had been to hemorrhoids previously there was now one that was hard and enlarged. Patient is endorsing 10 of 10 constant pain that is worse with straining localized to the anal area, nonradiating. Denies bleeding, fever. 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) - Present Medications Home Medications: Ambulatory Orders Medication Instructions Recorded Confirmed Famotidine 20 mg PO DAILY #30 tablet 11/17/19 Fluoxetine HCl 40 mg PO DAILY #30 capsule 11/17/19 hydrOXYzine HCL [Hydroxyzine HCl] 25 mg PO BID PRN #20 tablet 11/17/19 HYDROcod/ACETAM 5/325 [[place] 5/325] 1 - 2 ea PO Q6H PRN #15 04/27/20 Sulfamethox/Trimeth 800/160 1 each PO BID #14 tab 04/27/20 [Bactrim Ds 800/160] Ketorolac [Toradol] 10 mg PO Q6H PRN #30 tablet 10/21/20 Oxycodone HCl/Acetaminophen 1 each PO Q4H PRN #10 tablet 10/21/20 [Percocet 10-325 mg Tablet] - Allergies Allergies/Adverse Reactions: Allergies Allergy/AdvReac Type Severity Reaction Status Date / Time ibuprofen AdvReac Headache Verified 10/21/20 19:38 - Social History Does the pt smoke?: Yes Smoking Status: Current every day smoker Does the pt drink ETOH?: No Does the pt have substance abuse?: No - Immunizations Immunizations are current?: Yes - POLST Patient has POLST: No PD ED PE NORMAL - Vitals Vital signs reviewed: Yes - General General: Alert and oriented X 3, Other (tearful, anxious appearing) - HEENT HEENT: Atraumatic, PERRL, EOMI - Rectal Rectal: Other (single large external thrombosed hemorrhoid 3cm in diameter. MARIUSZ brown stool) - Derm Derm: Normal color, Warm and dry - Extremities Extremities: No deformity - Neuro Neuro: Alert and oriented X 3 - Psych Psych: Other (tearful, anxious) Results - Vitals Vitals: Vital Signs - 24 hr 10/21/20 19:26 Temperature 36.7 C Heart Rate 83 Respiratory 22 Rate Blood Pressure 133/121 H O2 Saturation 100 Oxygen O2 Source Room air PD MEDICAL DECISION MAKING - ED course ED course: 35-year-old woman presents with external thrombosed hemorrhoid that appears to have formed today. Pain controlled in the emergency department. Patient referred to surgery clinic and return precautions given. Departure - Departure Clinical Impression: Thrombosed hemorrhoids Condition: Stable Instructions: ED Hemorrhoids Prescriptions: Oxycodone HCl/Acetaminophen [Percocet 10-325 mg Tablet] 1 each PO Q4H PRN #10 tablet PRN Reason: Pain Ketorolac [Toradol] 10 mg PO Q6H PRN #30 tablet PRN Reason: Pain Comments: You are seen in the emergency department for hemorrhoid pain. You should call surgery clinic tomorrow morning for an appointment. It is possible they will be able to do a procedure to relieve your pain or recommend other treatments. Please return to the emergency department if you have new or worsening symptoms or other concerns.
[2020-10-21] MEDS ORDERED: HYDROmorphone 1 MG/ML CARPUJECT IVP STA (20:17)
[2020-10-21] MEDS ORDERED: oxyCODONE/ACET 5/325 Prepack 4 PO STA (21:34)
[2020-10-21 21:41] VITALS: BP 125/80
== END 2020-10-21 21:58 | disposition home or self-care (01) ==
LOC: EDUNIT# → ED 19:20
DX: K64.5 Perianal venous thrombosis (principal); F17.200 Nicotine dependence, unspecified, uncomplicated
CPT/HCPCS: 82272; 96374; 96375; 99281; 99283; J1170; J8499; 82274

== ENCOUNTER 2020-10-26 09:48 | Outpatient (CLI) | payer MEDICAID | END 2020-10-26 09:49 | disposition home or self-care (01) | LOC: LAB.N 09:48 | PROVIDERS: ATTEND Family Medicine | DX: Z01.84 Encounter for antibody response examination (principal) | CPT/HCPCS: 36415; 86317; 86735; 86762; 86765; 86787 ==

== ENCOUNTER 2020-11-30 12:20 | Outpatient (CLI) | payer MEDICAID | END 2020-11-30 23:59 | disposition home or self-care (01) | LOC: LAB.N 12:20 | PROVIDERS: ATTEND Family Medicine | DX: R10.9 Unspecified abdominal pain (principal) ==

== ENCOUNTER 2020-12-02 09:50 | Emergency (ER) | payer MEDICAID ==
--- NOTE | 2020-12-02 10:33 | ED Physician Documentation ---
PD HPI ABD PAIN - Stated complaint Stated Complaint: ABD PX - Chief complaint Chief Complaint: Abd Pain - History obtained from History obtained from: Patient - History of Present Illness Timing - onset: How many days ago (6) Timing - duration: Days (6) Timing - details: Gradual onset, Still present, Waxing and waning Quality: Cramping, Aching, Pain Location: All over / everywhere, Periumbilical Radiation: Lower back Associated symptoms: Nausea, Diarrhea, Loss of appetite. No: Fever, Vomiting, Weight loss Similar symptoms before: Has not had sx before Recently seen: Clinic (went to [facility] for COVID test 2 days ago, has not gotten result yet.) Review of Systems Constitutional: reports: Myalgias, Fatigue. denies: Fever, Chills Nose: denies: Rhinorrhea / runny nose, Congestion Throat: denies: Sore throat Respiratory: reports: Cough. denies: Wheezing GI: reports: Abdominal Pain, Nausea, Diarrhea. denies: Vomiting : denies: Dysuria Skin: denies: Rash Neurologic: reports: Generalized weakness. denies: Near syncope, Altered mental status, Headache PD PAST MEDICAL HISTORY - Past Medical History Cardiovascular: None Respiratory: None Neuro: None Endocrine/Autoimmune: None GI: None Psych: Depression, Anxiety - Past Surgical History Past Surgical History: Yes /[employer]: Other (ovarian cyst) - Present Medications Home Medications: Ambulatory Orders Medication Instructions Recorded Confirmed Famotidine 20 mg PO DAILY #30 tablet 11/17/19 Fluoxetine HCl 40 mg PO DAILY #30 capsule 11/17/19 hydrOXYzine HCL [Hydroxyzine HCl] 25 mg PO BID PRN #20 tablet 11/17/19 HYDROcod/ACETAM 5/325 [[place] 5/325] 1 - 2 ea PO Q6H PRN #15 04/27/20 Sulfamethox/Trimeth 800/160 1 each PO BID #14 tab 04/27/20 [Bactrim Ds 800/160] Ketorolac [Toradol] 10 mg PO Q6H PRN #30 tablet 10/21/20 Oxycodone HCl/Acetaminophen 1 each PO Q4H PRN #10 tablet 10/21/20 [Percocet 10-325 mg Tablet] Amox/Clav 875/125 [Augmentin] 1 each PO Q12H #10 tablet 12/02/20 HYDROcod/ACETAM 5/325 [[place] 5/325] 1 ea PO Q6H PRN #10 tablet 12/02/20 Ondansetron Odt [Zofran] 4 mg TL Q6H PRN #10 tablet 12/02/20 - Allergies Allergies/Adverse Reactions: Allergies Allergy/AdvReac Type Severity Reaction Status Date / Time ibuprofen AdvReac Headache Verified 10/21/20 19:38 - Social History Does the pt smoke?: Yes Smoking Status: Current every day smoker Does the pt drink ETOH?: No Does the pt have substance abuse?: No - Immunizations Immunizations are current?: Yes - POLST Patient has POLST: No PD ED PE NORMAL - Vitals Vital signs reviewed: Yes - General General: Alert and oriented X 3, Well developed/nourished, Other (appears uncomfortable) - HEENT HEENT: Pharynx benign. No: Moist mucous membranes - Neck Neck: Supple, no meningeal sign, No adenopathy - Cardiac Cardiac: RRR, No murmur - Respiratory Respiratory: Clear bilaterally - Abdomen Abdomen: Normal bowel sounds, Soft, Non distended, No organomegaly, Other (tender periumbilical and right lower without percussion nor rebound tender. ) Results - Vitals Vitals: Oxygen O2 Source Room air - Labs Labs: Laboratory Tests 12/02/20 12/02/20 12/02/20 11:43 11:43 11:43 WBC 9.2 RBC 4.40 Hgb 13.5 Hct 42.2 MCV 95.9 MCH 30.7 MCHC 32.0 RDW 12.9 Plt Count 288 MPV 9.3 Neut # (Auto) 6.0 Lymph # (Auto) 2.5 [place] # (Auto) 0.6 Eos # (Auto) 0.1 Baso # (Auto) 0.0 Absolute Nucleated RBC 0.00 Nucleated RBC % 0.0 Sodium 135 Potassium 3.9 Chloride 100 L Carbon Dioxide 24 Anion Gap 11.0 BUN < 5 L Creatinine 0.7 Estimated GFR (MDRD) 115 Glucose 94 Calcium 9.3 Total Bilirubin 0.9 AST 22 ALT 21 Alkaline Phosphatase 83 Total Protein 8.3 H Albumin 4.5 Globulin 3.8 Albumin/Globulin Ratio 1.2 Lipase 118 H Serum HCG, Qual NEGATIVE Urine Color Urine Clarity Urine pH Ur Specific Wheeler Urine Protein Urine Glucose (UA) Urine Ketones Urine Occult Blood Urine Nitrite Urine Bilirubin Urine Urobilinogen Ur Leukocyte Esterase Ur Microscopic Review Urine Culture Comments 12/02/20 13:05 WBC RBC Hgb Hct MCV MCH MCHC RDW Plt Count MPV Neut # (Auto) Lymph # (Auto) [place] # (Auto) Eos # (Auto) Baso # (Auto) Absolute Nucleated RBC Nucleated RBC % Sodium Potassium Chloride Carbon Dioxide Anion Gap BUN Creatinine Estimated GFR (MDRD) Glucose Calcium Total Bilirubin AST ALT Alkaline Phosphatase Total Protein Albumin Globulin Albumin/Globulin Ratio Lipase Serum HCG, Qual Urine Color LIGHT YELLOW Urine Clarity CLEAR Urine pH 7.5 Ur Specific [place] <=1.005 Urine Protein NEGATIVE Urine Glucose (UA) NEGATIVE Urine Ketones NEGATIVE Urine Occult Blood NEGATIVE Urine Nitrite NEGATIVE Urine Bilirubin NEGATIVE Urine Urobilinogen 0.2 (NORMAL) Ur Leukocyte Esterase NEGATIVE Ur Microscopic Review NOT INDICATED Urine Culture Comments NOT INDICATED - Rads (name of study) abd/pelvic CT Radiology: Prelim report reviewed (wall thickening in cecum/ascending colon c/w colitis. ), See rad report PD MEDICAL DECISION MAKING - ED course Complexity details: reviewed results (wall thickening in cecum and ascending colon c/w colitis. ), re-evaluated patient (feeling improved with fluids and meds. ), considered differential, d/w patient Departure - Departure Disposition: 01 Home, Self Care Clinical Impression: Acute colitis Abdominal pain Qualifiers: Abdominal location: generalized Qualified Code(s): R10.84 - Generalized abdominal pain Condition: Stable Record reviewed to determine appropriate education?: Yes Follow-Up: Jaz Garcia DO [Primary Care Provider] - Prescriptions: Amox/Clav 875/125 [Augmentin] 1 each PO Q12H #10 tablet HYDROcod/ACETAM 5/325 [[place] 5/325] 1 ea PO Q6H PRN #10 tablet PRN Reason: Pain Ondansetron Odt [Zofran] 4 mg TL Q6H PRN #10 tablet PRN Reason: Nausea / Vomiting Comments: Your CT scan shows an area of colon wall inflammation (acute colitis). This can be virally caused by a concern would be some bacterial cause at this point given the duration of your symptoms. We can treat this with ondansetron for nausea. Tylenol every 4-6 hours if needed for pain or hydrocodone if needed for worse pain in the short-term. Augmentin antibiotic twice daily for 5 days for potential bacterial cause. I would anticipate improvement over the next day or 2 and resolved by 3 to 4 days. Return if not better in that timeframe or if worsening. Stay well-hydrated. Porter food for the next couple of days. My narcotic instructions I am prescribing a short course of narcotic pain medication for you. These are potentially dangerous and addictive medications that should be used carefully. These medications may constipate you. Take an [id number] stool softener such as docusate twice daily with plenty of water while taking these medications. If you go 24 hours without a bowel movement, take [id number] MiraLAX, per package instructions. Do not drink or drive while taking these medications. If you received narcotic or sedating medications while in the emergency department do not drive for 24 hours. Store this medication in a safe, secure place and out of reach of children. It is a violation of federal law to give or sell this medication to another person or to use in a manner other than prescribed. The ED will not refill narcotic prescriptions, including prescriptions lost or stolen. You can dispose of unwanted medications at the [facility]'s office or at several pharmacies such as [facility]. [email or web address] [place]. Forms: Activity restrictions Discharge Date/Time: 12/02/20 13:55
[2020-12-02] MEDS ORDERED: ACETAMINOPHEN 325 MG TABLET PO STA (11:28)
[2020-12-02] MEDS ORDERED: SODIUM CHLORIDE 0.9% 1,000 ML IV STA (11:28)
[2020-12-02] MEDS ORDERED: ONDANSETRON 4 MG/2 ML VIAL IVP STA (11:28)
[2020-12-02] MEDS ORDERED: IOPAMIDOL-300 100 ML VIAL ONE (11:39)
[2020-12-02 11:51] LABS: BASOPHILS % (AUTO) 0.4 %; EOSINOPHILS # (AUTO) 0.1 10^3/uL (0.0-0.7); HCT - HEMATOCRIT 42.2 % (37.0-47.0); HGB - HEMOGLOBIN 13.5 g/dL (12.0-16.0); LYMPHOCYTES # (AUTO) 2.5 10^3/uL (1.5-3.5); MEAN CORPUSCULAR HEMOGLOBIN 30.7 pg (27.0-31.0); MEAN CORPUSCULAR VOLUME 95.9 fL (81.0-99.0); MEAN PLATELET VOLUME 9.3 fL (7.9-10.8); MONOCYTES # (AUTO) 0.6 10^3/uL (0.0-1.0); MONOCYTES % (AUTO) 6.2 %; NEUTROPHILS % (AUTO) 65.1 %; PLT - PLATELET COUNT 288 10^3/uL (130-450); RED CELL DISTRIBUTION WIDTH 12.9 % (12.0-15.0); WHITE BLOOD COUNT 9.2 x10^3/uL (4.8-10.8)
[2020-12-02 12:12] LABS: HCG,QUALITATIVE BLOOD NEGATIVE
[2020-12-02 12:26] LABS: ALBUMIN 4.5 g/dL (3.2-5.5); ALBUMIN/GLOBULIN RATIO 1.2 (1.0-2.2); ALKALINE PHOSPHATASE 83 IU/L (42-121); ALT ALANINE AMINOTRANSFERASE 21 IU/L (10-60); AST ASPARTATE AMINOTRANSFERASE 22 IU/L (10-42); BILIRUBIN,TOTAL 0.9 mg/dL (0.2-1.0); BUN - BLOOD UREA NITROGEN < 5 mg/dL (6-20); CALCIUM 9.3 mg/dL (8.5-10.3); CARBON DIOXIDE - CO2 24 mmol/L (21-32); CHLORIDE 100 mmol/L (101-111); CREATININE 0.7 mg/dL (0.4-1.0); GFR - MDRD 115 (>89); GLUCOSE 94 mg/dL (70-100); LIPASE 118 U/L (22-51); POTASSIUM 3.9 mmol/L (3.5-5.0); SODIUM 135 mmol/L (135-145); TOTAL PROTEIN 8.3 g/dL (6.7-8.2)
--- NOTE | 2020-12-02 13:01 | CT Report ---
PROCEDURE: Abdomen/Pelvis W INDICATIONS: LLQ Abdominal pain, diverticulitis suspected CONTRAST: IV CONTRAST: Isovue 300 ml: 100 PO CONTRAST: *NO PO CONTRAST TECHNIQUE: After the administration of IV contrast, 5 mm thick sections acquired from the diaphragms to the symp hysis. 5 mm thick coronal and sagittal reformats were acquired. For radiation dose reduction, the f ollowing was used: automated exposure control, adjustment of mA and/or kV according to patient size. COMPARISON: 04/18/2016 FINDINGS: Image quality: Excellent. ABDOMEN: Lung bases: Lung bases are clear. Heart size is normal. Solid organs: Liver and spleen are normal in size and enhancement. Accessory splenules are seen adj acent to to the primary spleen. Gallbladder wall does not appear thickened. Biliary system is non dilated. Pancreas enhances normally. No adrenal nodules. Kidneys demonstrate normal size and enhan cement, without hydronephrosis. Peritoneum and bowel: No appendix can be seen, either normal or abnormal. No focal right lower quadr ant inflammatory changes are seen. Mild wall thickening with submucosal fat can be seen involving the terminal ileum and the cecum and the ascending colon. No dilated loops of small bowel are seen. Ther e is generalized mild to moderate wall thickening seen involving the distal colon beginning at the le prisca of the splenic flexure. No free air or significant free fluid can be seen. No abscess collection can be seen. Nodes and vessels: No retroperitoneal or mesenteric adenopathy by size criteria. Aorta and inferior vena cava are normal in size. Miscellaneous: No ventral hernias. PELVIS: Genitourinary: Bladder wall thickness is normal. Uterus appears normal. Bilateral ovarian cysts are seen, with a 4 cm left ovarian cyst and a 3.9 cm right ovarian cyst seen. No suspicious features are seen. Miscellaneous: No inguinal hernias or adenopathy. Bones: No suspicious bony lesions. No vertebral body compression fractures. IMPRESSION: Generalized wall thickening is seen of the distal colon. This is attributed to nonspecif ic colitis. Please correlate with infectious and inflammatory causes. No findings of perforation or abscess can be seen. Submucosal fat and wall thickening can be seen involving the terminal ileum and the cecum and the asc ending colon. Please consider Crohn's disease. Bilateral prominent ovarian cysts are seen. In a patient this age, these are almost certainly benign. Please consider follow-up pelvic ultrasound for further evaluation. Incidental note is made of: Accessory splenules Reviewed by: Mode Molina MD on 12/02/2020 12:00 PM DANIA Approved by: Mode Molina MD on 12/02/2020 12:00 PM DANIA Station ID: [id number]
[2020-12-02 13:04] VITALS: BP 134/96
[2020-12-02] MEDS ORDERED: AMOX/CLAV 875 MG/125 MG TABLET PO STA (13:22)
[2020-12-02] MEDS ORDERED: DEXAMETHASONE 10 MG/ML VIAL IVP STA (13:22)
[2020-12-02 13:44] LABS: BILIRUBIN,URINE NEGATIVE (NEGATIVE); GLUCOSE, URINE (UA) NEGATIVE (NEGATIVE); KETONES,URINE (UA) NEGATIVE (NEGATIVE); LEUKOCYTE ESTERASE, URINE NEGATIVE (NEGATIVE); NITRITE,URINE NEGATIVE (NEGATIVE); OCCULT BLOOD,URINE NEGATIVE (NEGATIVE); PH,URINE 7.5 PH (5.0-7.5); PROTEIN,URINE NEGATIVE (NEGATIVE); UROBILINOGEN,URINE 0.2 (NORMAL) E.U./dL (NORMAL)
[2020-12-02 13:46] LABS: CLARITY,URINE CLEAR (CLEAR)
[2020-12-02] MEDS ORDERED: IOPAMIDOL-300 100 ML VIAL IVP ONE (13:49)
== END 2020-12-02 13:55 | disposition home or self-care (01) ==
LOC: ED 09:50
DX: K52.9 Noninfective gastroenteritis and colitis, unspecified (principal)
CPT/HCPCS: 36415; 74177; 80053; 81003; 83690; 84703; 85025; 96374; 96375; 99284; A9270; Q9967; 81001; 87086

== ENCOUNTER 2020-12-14 05:57 | Emergency (ER) | payer MEDICAID ==
[2020-12-14 06:25] LABS: BILIRUBIN,URINE NEGATIVE (NEGATIVE); GLUCOSE, URINE (UA) NEGATIVE (NEGATIVE); KETONES,URINE (UA) NEGATIVE (NEGATIVE); LEUKOCYTE ESTERASE, URINE NEGATIVE (NEGATIVE); NITRITE,URINE NEGATIVE (NEGATIVE); OCCULT BLOOD,URINE LARGE (NEGATIVE); PROTEIN,URINE NEGATIVE (NEGATIVE); UROBILINOGEN,URINE 0.2 (NORMAL) E.U./dL (NORMAL)
[2020-12-14 06:28] LABS: CLARITY,URINE CLEAR (CLEAR)
[2020-12-14 06:32] LABS: BACTERIA,URINE Rare /HPF (None Seen); HCG UR QUAL NEGATIVE; RBC,URINE 0-5 /HPF (0-5); SQUAMOUS EPITHELIAL CELL,UR MOD Squamous (<= Few); WBC,URINE 0-3 /HPF (0-5)
[2020-12-14] MEDS ORDERED: HYDROmorphone 1 MG/ML CARPUJECT IM STA (07:38)
--- NOTE | 2020-12-14 07:48 | ED Physician Documentation ---
PD HPI ABD PAIN - Stated complaint Stated Complaint: ABD PX,FEMALE - Chief complaint Chief Complaint: Abd Pain - History obtained from History obtained from: Patient - Additional information Additional information: Patient comes emergency department chief complaint of worsening diarrhea and abdominal cramping over the last several days after completing a 10-day course of Levaquin for colitis. Patient states that she has noticed a little bit of blood in her stools, 2, though this is not much. No fevers or chills. She was nauseated and vomiting a little until 2 days ago, and states she is not currently nauseated. As a side note, her hemorrhoids have also flared up throughout this process. Patient states she has had symptoms total for about 2 weeks and at that time was diagnosed with colitis by CT scan. No other complaints or abdominal conditions. Patient is not known to be . She states the pain is in both flanks and also comes across her upper abdomen. Review of Systems Ten Systems: 10 systems reviewed and negative Constitutional: reports: Reviewed and negative Eyes: reports: Reviewed and negative Ears: reports: Reviewed and negative Nose: reports: Reviewed and negative Throat: reports: Reviewed and negative Cardiac: reports: Reviewed and negative Respiratory: reports: Reviewed and negative GI: reports: Abdominal Pain, Nausea, Diarrhea : reports: Reviewed and negative Skin: reports: Reviewed and negative Musculoskeletal: reports: Reviewed and negative Neurologic: reports: Reviewed and negative Psychiatric: reports: Reviewed and negative Endocrine: reports: Reviewed and negative Immunocompromised: reports: Reviewed and negative PD PAST MEDICAL HISTORY - Past Medical History Past Medical History: Yes Cardiovascular: None Respiratory: None Neuro: None Endocrine/Autoimmune: None 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 : None HEENT: None Psych: Depression, Anxiety Musculoskeletal: None - Past Surgical History 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 - Present Medications Home Medications: Ambulatory Orders Medication Instructions Recorded Confirmed Diphenoxylate HCl/Atropine 10 ml PO BID PRN #100 ml 12/14/20 [Diphenoxylate-Atropine Liq] HYDROcod/ACETAM 5/325 [[place] 5/325] 1 - 2 tablet PO Q6H PRN #10 tablet 12/14/20 Ondansetron Odt [Zofran] 4 mg TL Q6H PRN #10 tablet 12/14/20 - Allergies Allergies/Adverse Reactions: Allergies Allergy/AdvReac Type Severity Reaction Status Date / Time ibuprofen AdvReac Headache Verified 12/14/20 06:09 - Social History Does the pt smoke?: Yes Smoking Status: Current every day smoker Does the pt drink ETOH?: No Does the pt have substance abuse?: No - Immunizations Immunizations are current?: Yes - POLST Patient has POLST: No PD ED PE NORMAL - Vitals Vital signs reviewed: Yes - General General: Alert and oriented X 3, No acute distress, Well developed/nourished - HEENT HEENT: Atraumatic, PERRL, EOMI, Moist mucous membranes - Neck Neck: Supple, no meningeal sign - Cardiac Cardiac: RRR, No murmur - Respiratory Respiratory: No respiratory distress, Clear bilaterally - Abdomen Abdomen: Soft, Other (Mild distention. Diffusely mild to moderately tender, worse in bilateral flanks.) - Derm Derm: Warm and dry - Extremities Extremities: No deformity - Neuro Neuro: Alert and oriented X 3 - Psych Psych: Normal mood, Normal affect Results - Vitals Vitals: Vital Signs - 24 hr 12/14/20 12/14/20 06:07 08:52 Temperature 36.6 C Heart Rate 103 H 85 Respiratory 16 18 Rate Blood Pressure 115/82 H 119/83 H O2 Saturation 100 100 Oxygen O2 Source Room air - Labs Labs: Laboratory Tests 12/14/20 06:10 Urine Color YELLOW Urine Clarity CLEAR Urine pH 6.0 Ur Specific [place] 1.010 Urine Protein NEGATIVE Urine Glucose (UA) NEGATIVE Urine Ketones NEGATIVE Urine Occult Blood LARGE H Urine Nitrite NEGATIVE Urine Bilirubin NEGATIVE Urine Urobilinogen 0.2 (NORMAL) Ur Leukocyte Esterase NEGATIVE Urine RBC 0-5 Urine WBC 0-3 Ur Squamous Epith Cells MOD Squamous H Urine Bacteria Rare Urine Culture Comments NOT INDICATED Urine HCG, Qual NEGATIVE - Rads (name of study) CT abd/pelv Radiology: Final report received, EMP read indepedently, See rad report (neg) PD MEDICAL DECISION MAKING - ED course Complexity details: reviewed old records, reviewed results, re-evaluated patient, considered differential, d/w patient ED course: PT was treated symptomatically and worked up with CT of the abd/pelvis. This was unremarkable. She was asked to give a stool sample to test for C. diff, but could not. I have discussed follow-up with the pt. There is no evidence of an emergent condition today. Departure - Departure Disposition: 01 Home, Self Care Clinical Impression: Abdominal pain Qualifiers: Abdominal location: generalized Qualified Code(s): R10.84 - Generalized abdominal pain Diarrhea Qualifiers: Diarrhea type: unspecified type Qualified Code(s): R19.7 - Diarrhea, unspecified Condition: Stable Instructions: ED Abdominal Pain Unkn Cause, ED Diet Vomiting Diarrhea Prescriptions: Diphenoxylate HCl/Atropine [Diphenoxylate-Atropine Liq] 10 ml PO BID PRN #100 ml PRN Reason: Diarrhea HYDROcod/ACETAM 5/325 [[place] 5/325] 1 - 2 tablet PO Q6H PRN #10 tablet PRN Reason: Pain Ondansetron Odt [Zofran] 4 mg TL Q6H PRN #10 tablet PRN Reason: Nausea / Vomiting Comments: Your CT scan looks good today. There is no evidence of ongoing colitis. You were not able to give us a stool sample, so we could not evaluate you for the C. difficile bacteria and toxin. If you are able to give a sample, please bring it to your primary doctor's office and they can do this test for you. You have been prescribed some medicines for symptomatic relief, and these have been electronically transmitted to [facility] in [place]. Please follow-up with your doctor for further concerns. Discharge Date/Time: 12/14/20 09:00
--- NOTE | 2020-12-14 08:11 | CT Report ---
PROCEDURE: Abdomen/Pelvis WO INDICATIONS: bilat flank pain, hematuria TECHNIQUE: Noncontrast 5 mm thick sections acquired from the diaphragms to the symphysis. 5 mm coronal and sagi ttal reformats were then performed. For radiation dose reduction, the following was used: automated exposure control, adjustment of mA and/or kV according to patient size. COMPARISON: None. FINDINGS: Image quality: Excellent. ABDOMEN: Lung bases: Lung bases are clear. Heart size is normal. Solid organs: Liver and spleen are normal in size. Gallbladder is normal Pancreas is normal in con tours. No adrenal nodules. Kidneys are normal in size, without hydronephrosis or nephrolithiasis. Peritoneum and bowel: Unenhanced bowel loops demonstrate normal wall thickness and caliber. Trace f ree fluid in the cul-de-sac of the pelvis. No free air. Appendix is normal. Nodes and vessels: No retroperitoneal or mesenteric adenopathy by size criteria. Aorta and inferior vena cava are normal in caliber. Miscellaneous: No ventral hernias. PELVIS: Genitourinary: Bladder is nearly completely decompressed at time of image acquisition which limits d iagnostic sensitivity study, however bladder appears grossly normal.. Miscellaneous: No inguinal hernias or adenopathy. Bones: No suspicious bony lesions. No vertebral body compression fractures. IMPRESSION: No renal stone or hydronephrosis. Reviewed by: Chelsea Chi MD, PhD on 12/14/2020 8:09 AM PDT Approved by: Chelsea Chi MD, PhD on 12/14/2020 8:09 AM PDT Station ID: [id number]
[2020-12-14 08:53] VITALS: BP 119/83
== END 2020-12-14 09:00 | disposition home or self-care (01) ==
LOC: ED 05:57
DX: R10.84 Generalized abdominal pain (principal); R19.7 Diarrhea, unspecified; R11.2 Nausea with vomiting, unspecified; Z87.19 Personal history of other diseases of the digestive system; F17.200 Nicotine dependence, unspecified, uncomplicated
CPT/HCPCS: 74176; 81001; 81025; 96372; 99284; J1170; 87086

== ENCOUNTER 2021-02-20 06:16 | Day surgery (SDC) | payer MEDICAID ==
[2021-02-20] MEDS ORDERED: LACTATED RINGERS 1,000 ML IV ONE ×2 (06:32→09:13)
[2021-02-20 06:57] LABS: HCG UR QUAL NEGATIVE
--- NOTE | 2021-02-20 07:37 | ANESTHESIA ---
Pre-Anesthesia VS, & Labs - Diagnosis abdominal pain - Procedure colonoscopy Vital Signs: Temp Pulse Resp BP Pulse Ox 36.7 C 60 16 122/90 H 100 02/20/21 06:49 02/20/21 06:49 02/20/21 06:49 02/20/21 06:49 02/20/21 06:49 Height: 5 ft 8 in Weight (kg): 79.8 kg Body Mass Index: 26.7 BMI Classification: Overweight - NPO >8 hours - Is Patient ?: No - Lab Results Lab results reviewed: Yes Home Medications and Allergies Home Medications: Ambulatory Orders Acetaminophen [Tylenol] 1 tab PO PRN PRN 02/17/21 Naproxen 1 tab PO PRN PRN 02/17/21 Acetaminophen [Tylenol] 1 tab PO PRN PRN 02/17/21 Naproxen 1 tab PO PRN PRN 02/17/21 Allergies/Adverse Reactions: Allergies Allergy/AdvReac Type Severity Reaction Status Date / Time ibuprofen AdvReac Headache Verified 12/14/20 06:09 Anes History & Medical History - Anesthetic History Anesthesia Complications: reports: No previous complications Family history of Anesthesia Complications: Denies Family history of Malignant Hyperthermia: Denies - Medical History Cardiovascular: reports: None, [place] Pulmonary: reports: None Gastrointestinal: reports: Other Urinary: reports: Frequency Neuro: reports: None Musculoskeletal: reports: None Endocrine/Autoimmune: reports: None Blood Disorders: reports: None Skin: reports: None Smoking Status: Current every day smoker - Surgical History Gynecologic: reports: Other (lap ovarian cystectomy) Dermatologic: reports: Other Exam General: Alert, Oriented x3, Cooperative Dental: WNL Mouth Opening: Greater than 4 Fingerbreadths Neck Mobility: Normal Mallampati classification: I Thyromental Distance: greater than 6 cm Respiratory: Lungs clear, Normal breath sounds, No respiratory distress Cardiovascular: Regular rate Neurological: Normal speech Mental/Cognitive Status: Alert/Oriented X3, Normal for patient Cognitive Status: Within normal limits Plan Anesthesia Type: Total IV Consent for Procedure(s) Verified and Reviewed: Yes Code Status: Attempt Resuscitation ASA classification: 2-Mild systemic disease Is this case an emergency?: No
[2021-02-20] MEDS ORDERED: PROPOFOL 500 MG/50 ML 500 MG/50 ML VIAL ONE (09:08)
[2021-02-20] MEDS ORDERED: PROPOFOL 200 MG/20 ML VIAL IVP ONE (09:08)
[2021-02-20 09:30] VITALS: BP 112/64
--- NOTE | 2021-02-20 11:06 | ANESTHESIA POST OP EVALUATION ---
Anesthesia Post Eval - Post Anesthesia Eval Vitals: Last Vital Signs Temp 36.6 C 02/20/21 09:30 Pulse 79 02/20/21 09:30 Resp 16 02/20/21 09:30 BP 112/64 02/20/21 09:30 Pulse Ox 99 02/20/21 09:30 CV Function Including HR & BP: Stable Pain Control: Satisfactory Nausea & Vomiting: Negative Mental Status: Baseline Respiratory Status: Airway Patent Hydration Status: Satisfactory Anesthesia Complications: None
== END 2021-02-20 06:17 | disposition home or self-care (01) ==
LOC: SDS 06:16
PROVIDERS: ATTEND Surgery
PROC: 0DBE8ZX Excision of Large Intestine, Via Natural or Artificial Opening Endoscopic, Diagnostic (ICD-10-PCS; principal; 2021-02-20 08:15)
DX: R10.9 Unspecified abdominal pain (principal); R10.2 Pelvic and perineal pain; K64.8 Other hemorrhoids; F41.9 Anxiety disorder, unspecified; F17.200 Nicotine dependence, unspecified, uncomplicated; Z20.822 Contact with and (suspected) exposure to COVID-19
CPT/HCPCS: 45380; 81025; 81599; 83630; 87015; 87177; 87209; 87272; 87329; 87493; 87635; J7120; 87045; 87046

== ENCOUNTER 2021-03-01 17:44 | Emergency (ER) | payer MEDICAID ==
[2021-03-01 18:08] LABS: BILIRUBIN,URINE NEGATIVE (NEGATIVE); GLUCOSE, URINE (UA) NEGATIVE (NEGATIVE); KETONES,URINE (UA) NEGATIVE (NEGATIVE); LEUKOCYTE ESTERASE, URINE NEGATIVE (NEGATIVE); NITRITE,URINE NEGATIVE (NEGATIVE); OCCULT BLOOD,URINE LARGE (NEGATIVE); PROTEIN,URINE NEGATIVE (NEGATIVE); UROBILINOGEN,URINE 0.2 (NORMAL) E.U./dL (NORMAL)
[2021-03-01 18:11] LABS: CLARITY,URINE CLEAR (CLEAR); HCG UR QUAL NEGATIVE
[2021-03-01 18:21] LABS: BASOPHILS % (AUTO) 0.3 %; EOSINOPHILS # (AUTO) 0.2 10^3/uL (0.0-0.7); EOSINOPHILS % (AUTO) 1.5 %; HCT - HEMATOCRIT 41.6 % (37.0-47.0); HGB - HEMOGLOBIN 13.5 g/dL (12.0-16.0); LYMPHOCYTES # (AUTO) 2.7 10^3/uL (1.5-3.5); MEAN CORPUSCULAR HEMOGLOBIN 30.5 pg (27.0-31.0); MEAN CORPUSCULAR HGB CONC 32.5 g/dL (32.0-36.0); MEAN CORPUSCULAR VOLUME 93.9 fL (81.0-99.0); MEAN PLATELET VOLUME 9.5 fL (7.9-10.8); MONOCYTES # (AUTO) 0.6 10^3/uL (0.0-1.0); MONOCYTES % (AUTO) 5.5 %; NEUTROPHILS # (AUTO) 7.3 10^3/uL (1.5-6.6); NEUTROPHILS % (AUTO) 67.4 %; PLT - PLATELET COUNT 324 10^3/uL (130-450); RED BLOOD COUNT 4.43 10^6/uL (4.20-5.40); RED CELL DISTRIBUTION WIDTH 12.4 % (12.0-15.0); WHITE BLOOD COUNT 10.8 x10^3/uL (4.8-10.8)
[2021-03-01 18:31] LABS: ALBUMIN 4.5 g/dL (3.2-5.5); ALBUMIN/GLOBULIN RATIO 1.4 (1.0-2.2); BILIRUBIN,TOTAL 0.2 mg/dL (0.2-1.0); CALCIUM 9.1 mg/dL (8.5-10.3); CREATININE 0.8 mg/dL (0.4-1.0); POTASSIUM 3.3 mmol/L (3.5-5.0); TOTAL PROTEIN 7.8 g/dL (6.7-8.2)
[2021-03-01 18:35] LABS: BACTERIA,URINE Rare /HPF (None Seen); RBC,URINE None Seen /HPF (0-5); SQUAMOUS EPITHELIAL CELL,UR MOD Squamous (<= Few); WBC,URINE 0-3 /HPF (0-5)
--- NOTE | 2021-03-01 19:40 | ED Physician Documentation ---
History of Present Illness - Stated complaint Stated Complaint: FEMALE GI/POST SURGERY - Chief complaint Chief Complaint: Abd Pain - History obtained from History obtained from: Patient - History of Present Illness Timing: Today Pain level max: 5 Pain level now: 3 - Additonal information Additional information: Patient is a 35-year-old female who presents to the emergency department the rectal pain today. Feels similar to prior episodes of hemorrhoids. She states that she had a colonoscopy about 15 days ago. She states that was normal other than internal hemorrhoid. No rectal bleeding. No abdominal pain. No vomiting. Worse with sitting and having a bowel movement. Nothing makes it better. Review of Systems Constitutional: denies: Fever, Chills Cardiac: denies: Chest pain / pressure Respiratory: denies: Cough GI: denies: Vomiting, Diarrhea Skin: denies: Rash Musculoskeletal: denies: Neck pain, Back pain Neurologic: denies: Headache PD PAST MEDICAL HISTORY - Past Medical History Cardiovascular: None, [place] Respiratory: None Neuro: None Endocrine/Autoimmune: None GI: Other PEARLER: None : Frequency HEENT: None Psych: Depression, Anxiety, Panic attacks Musculoskeletal: None Derm: None - Past Surgical History Past Surgical History: Yes /PEARLER: Other (lap ovarian cystectomy) Derm: Other - Present Medications Home Medications: Ambulatory Orders Medication Instructions Recorded Confirmed Acetaminophen [Tylenol] 1 tab PO PRN PRN 02/17/21 02/17/21 Naproxen 1 tab PO PRN PRN 02/17/21 02/17/21 Lidocaine/Hydrocortisone AC 1 applic RC BID #1 kit 03/01/21 [Lidocaine-Hc 2-2% Cream Kit] - Allergies Allergies/Adverse Reactions: Allergies Allergy/AdvReac Type Severity Reaction Status Date / Time ibuprofen AdvReac Headache Verified 03/01/21 17:48 - Social History Does the pt smoke?: Yes Smoking Status: Current every day smoker Does the pt drink ETOH?: No Does the pt have substance abuse?: No - Immunizations Immunizations are current?: Yes - POLST Patient has POLST: No PD ED PE NORMAL - Vitals Vital signs reviewed: Yes - General General: Alert and oriented X 3, No acute distress - HEENT HEENT: Moist mucous membranes - Neck Neck: Supple, no meningeal sign - Cardiac Cardiac: RRR - Respiratory Respiratory: No respiratory distress, Clear bilaterally - Abdomen Abdomen: Soft, Non tender, Non distended - Rectal Rectal: Other (Normal external rectal exam. No visible hemorrhoids. Patient refused an internal exam) - Derm Derm: Warm and dry - Neuro Neuro: Alert and oriented X 3 Results - Vitals Vitals: Vital Signs - 24 hr 03/01/21 03/01/21 03/01/21 17:48 17:54 19:48 Temperature 36.9 C 36.9 C Heart Rate 79 79 80 Respiratory 18 18 16 Rate Blood Pressure 124/90 H 124/90 H 120/87 H O2 Saturation 99 99 99 Oxygen O2 Source Room air - Labs Labs: Laboratory Tests 03/01/21 03/01/21 03/01/21 17:55 18:12 18:12 WBC 10.8 RBC 4.43 Hgb 13.5 Hct 41.6 MCV 93.9 MCH 30.5 MCHC 32.5 RDW 12.4 Plt Count 324 MPV 9.5 Neut # (Auto) 7.3 H Lymph # (Auto) 2.7 Owsley # (Auto) 0.6 Eos # (Auto) 0.2 Baso # (Auto) 0.0 Absolute Nucleated RBC 0.00 Nucleated RBC % 0.0 Sodium 135 Potassium 3.3 L Chloride 100 L Carbon Dioxide 26 Anion Gap 9.0 BUN 7 Creatinine 0.8 Estimated GFR (MDRD) 99 Glucose 101 H Calcium 9.1 Total Bilirubin 0.2 AST 16 ALT 13 Alkaline Phosphatase 86 Total Protein 7.8 Albumin 4.5 Globulin 3.3 Albumin/Globulin Ratio 1.4 Lipase 38 Urine Color YELLOW Urine Clarity CLEAR Urine pH 6.0 Ur Specific [place] 1.020 Urine Protein NEGATIVE Urine Glucose (UA) NEGATIVE Urine Ketones NEGATIVE Urine Occult Blood LARGE H Urine Nitrite NEGATIVE Urine Bilirubin NEGATIVE Urine Urobilinogen 0.2 (NORMAL) Ur Leukocyte Esterase NEGATIVE Urine RBC None Seen Urine WBC 0-3 Ur Squamous Epith Cells MOD Squamous H Urine Bacteria Rare Ur Microscopic Review INDICATED Urine Culture Comments NOT INDICATED Urine HCG, Qual NEGATIVE PD MEDICAL DECISION MAKING - ED course Complexity details: reviewed results, re-evaluated patient, considered differential, d/w patient ED course: Patient with likely internal hemorrhoids as seen on her recent colonoscopy. We will trial her on hydrocortisone. Abdomen is soft, nontender nondistended. She was having no pain before today. Unlikely to be related to the colonoscopy, but if she fails to improve as expected, would consider further work-up. Patient counseled regarding signs and symptoms for which I believe and urgent re- evaluation would be necessary. Patient with good understanding of and agreement to plan and is comfortable going home at this time This document was made in part using voice recognition software. While efforts are made to proofread this document, sound alike and grammatical errors may occur. Departure - Departure Disposition: Home, Self Care Clinical Impression: Rectal pain, Internal hemorrhoids Condition: Good Instructions: ED Hemorrhoids Follow-Up: Jaz Garcia DO [Primary Care Provider] - Within 1 week Prescriptions: Lidocaine/Hydrocortisone AC [Lidocaine-Hc 2-2% Cream Kit] 1 applic RC BID #1 kit Comments: Your medications were sent to [facility] in [place]. Please follow up with your doctor for further care. Return if you worsen. Discharge Date/Time: 03/01/21 19:49
[2021-03-01 19:49] VITALS: BP 120/87
== END 2021-03-01 19:49 | disposition home or self-care (01) ==
LOC: ED 17:44
DX: K64.8 Other hemorrhoids (principal); F17.200 Nicotine dependence, unspecified, uncomplicated
CPT/HCPCS: 36415; 80053; 81001; 81003; 81025; 83690; 85025; 87086; 99283

== ENCOUNTER 2021-04-11 06:01 | Emergency (ER) | payer MEDICAID ==
[2021-04-11 06:10] VITALS: BP 116/73
[2021-04-11] MEDS ORDERED: HYDROcod/ACET 5/325 Prepack 4 PO STA (06:27)
--- NOTE | 2021-04-11 06:28 | ED Physician Documentation ---
PD HPI URI - Stated complaint Stated Complaint: FEVER, BODY ACHES - Chief complaint Chief Complaint: Fever - History obtained from History obtained from: Patient - Additional information Additional information: 35-year-old woman who is not vaccinated against COVID became sick yesterday with headache, body aches and myalgias, subjective fevers and chills as well as mild sore throat. She tried half a Tylenol which was not effective in treating her pain. 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: Ovarian cysts : Frequency HEENT: None Psych: Depression, Anxiety, Panic attacks Musculoskeletal: None Derm: None - Past Surgical History Past Surgical History: Yes /PRINCIPAL GIFTS OFFICER: Other Derm: Other - Present Medications Home Medications: Ambulatory Orders Medication Instructions Recorded Confirmed No Known Home Medications 04/11/21 04/11/21 - Allergies Allergies/Adverse Reactions: Allergies Allergy/AdvReac Type Severity Reaction Status Date / Time ibuprofen AdvReac Headache Verified 04/11/21 06:06 - Social History Does the pt smoke?: Yes Smoking Status: Current every day smoker Does the pt drink ETOH?: Yes Does the pt have substance abuse?: Yes Substance Use and Type: Marijuana - Immunizations Immunizations are current?: No Immunizations: Other immun not current - POLST Patient has POLST: No PD ED PE NORMAL - Vitals Vital signs reviewed: Yes - General General: Alert and oriented X 3, No acute distress - Neck Neck: Supple, no meningeal sign, No bony TTP - Cardiac Cardiac: RRR, No murmur - Respiratory Respiratory: No respiratory distress, Clear bilaterally - Abdomen Abdomen: Normal bowel sounds, Soft, Non tender - Back Back: No CVA TTP, No spinal TTP - Derm Derm: Normal color, Warm and dry - Extremities Extremities: No edema, No calf tenderness / cord - Neuro Neuro: Alert and oriented X 3, Normal speech Results - Vitals Vitals: Vital Signs - 24 hr 04/11/21 06:06 Temperature 37.6 C Heart Rate 89 Respiratory 20 Rate Blood Pressure 116/73 O2 Saturation 100 Oxygen O2 Source Room air PD MEDICAL DECISION MAKING - ED course ED course: Discussed with her that given the current omicron outbreak, her symptoms likely represent coronavirus. Otherwise her exam is benign and simply seems like a nonspecific viral syndrome. She will be tested for COVID and advised on the need for quarantine pending test results. Departure - Departure Disposition: 01 Home, Self Care Clinical Impression: Viral syndrome Condition: Good Record reviewed to determine appropriate education?: Yes Instructions: ED Viral Syndrome Comments: I sent your prescription to [facility] pharmacy. Return for new or worsening symptoms. You have a Covid test pending. You need to self quarantine until the result is done and negative. Do not leave your house. Do not get near anybody. The results should be done in 48 to 72 hours. We will call with a positive result, the fastest way to get a negative result for confirmation though is to go to the hospital website at [email or web address], click on the my [facility] tab and sign up for the patient portal. If any friends or family get sick and would like to have a Covid test done, but do not have signs or symptoms that would necessitate being hospitalized, there are multiple local options for Covid testing. [facility] keeps an updated list of testing and vaccination options at: [email or web address].
== END 2021-04-11 06:43 | disposition home or self-care (01) ==
LOC: ED 06:01
DX: U07.1 COVID-19 (principal); F17.200 Nicotine dependence, unspecified, uncomplicated
CPT/HCPCS: 99282; 99283

== ENCOUNTER 2021-04-13 09:43 | Emergency (ER) | payer MEDICAID ==
--- NOTE | 2021-04-13 10:22 | ED Physician Documentation ---
PD HPI ABD PAIN - Stated complaint Stated Complaint: FEMALE - Chief complaint Chief Complaint: General - History obtained from History obtained from: Patient - History of Present Illness Timing - onset: How many days ago (2) Timing - duration: Days (2) Timing - details: Gradual onset, Still present (severe pain today) Quality: Aching, Pain Location: Other (perirectal area, and she thought it likely hemorrhoids.) Associated symptoms: Fever, Nausea, Other (muscle aches, sore throat, congestion and cough for several days.). No: Vomiting, Diarrhea, Dysuria Similar symptoms before: Has not had sx before Recently seen: Emergency Dept (seen 2 days ago for URI symtpoms. These have persisted. Did not have the rectal pain at that time.) Review of Systems Constitutional: reports: Fever Nose: reports: Rhinorrhea / runny nose, Congestion Throat: reports: Sore throat Cardiac: denies: Chest pain / pressure, Palpitations Respiratory: reports: Cough. 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: Ovarian cysts : Frequency HEENT: None Psych: Depression, Anxiety, Panic attacks Musculoskeletal: None Derm: None - Past Surgical History Past Surgical History: Yes /STERILE PROCESSING TECHNOLOGIST: Other Derm: Other - Present Medications Home Medications: Ambulatory Orders Medication Instructions Recorded Confirmed Naproxen 500 mg PO BID 10 Days #20 tab.sr 04/13/21 Oxycodone HCl/Acetaminophen 1 each PO Q6H PRN #14 tablet 04/13/21 [Percocet 5-325 mg Tablet] Sulfamethox/Trimeth 800/160 1 each PO BID #14 tablet 04/13/21 [Bactrim Ds 800/160] - Allergies Allergies/Adverse Reactions: Allergies Allergy/AdvReac Type Severity Reaction Status Date / Time ibuprofen AdvReac Headache Verified 04/13/21 09:58 - Social History Does the pt smoke?: Yes Smoking Status: Current every day smoker Does the pt drink ETOH?: Yes Does the pt have substance abuse?: Yes - Immunizations Immunizations are current?: No Immunizations: Other immun not current - POLST Patient has POLST: No PD ED PE NORMAL - Vitals Vital signs reviewed: Yes - General General: Alert and oriented X 3, Well developed/nourished, Other (appears in pain with trying to sit; most comfortable lying on side. ) - Cardiac Cardiac: RRR, No murmur - Respiratory Respiratory: Clear bilaterally - Abdomen Abdomen: Soft, Non tender - Female Female : Deferred - Rectal Rectal: Other (anterior preirectal area with soft tissue swelling and some redness, with 1 cm area of firmer tenderness without fluctuance. ) - Back Back: No CVA TTP - Derm Derm: Normal color, Warm and dry Results - Vitals Vitals: Vital Signs - 24 hr 04/13/21 04/13/21 04/13/21 09:53 11:18 11:25 Temperature 36.6 C Heart Rate 107 H 88 80 Respiratory 17 22 20 Rate Blood Pressure 131/83 H 122/81 H O2 Saturation 99 100 100 Oxygen O2 Source Room air PD MEDICAL DECISION MAKING - ED course Complexity details: reviewed results (her COVID test from 2 days ago resulted this morning and is positive. ), considered differential (has swelling and tender anterior to rectal area wiht local swelling but only small area about 1 cm of firmness, no fluctuance. Does not seem large enough to need I&D.), d/w patient Departure - Departure Disposition: Home, Self Care Clinical Impression: Perirectal abscess, Rectal pain, COVID-19 Condition: Stable Record reviewed to determine appropriate education?: Yes Instructions: ED Negra Anal Abscess Abx Only Follow-Up: Jaz Garcia DO [Primary Care Provider] - Prescriptions: Sulfamethox/Trimeth 800/160 [Bactrim Ds 800/160] 1 each PO BID #14 tablet Naproxen 500 mg PO BID 10 Days #20 tab.sr Oxycodone HCl/Acetaminophen [Percocet 5-325 mg Tablet] 1 each PO Q6H PRN #14 tablet PRN Reason: pain Comments: I do not see any obvious hemorrhoids. There could be some small internal ones. However the main issue appears a infection in the tissue around the rectum called the perirectal abscess. The central part feels small still and we can treat this with warm soaks 2-3 times a day in conjunction with antibiotics anti- inflammatories and pain medicine. I transmitted your prescriptions to [facility] pharmacy for Bactrim naproxen and oxycodone. Uses stool softener daily for the next several days as well. Recheck if not improving well over the next 2 to 3 days and return if worsening. The central part of the infection may accumulate a larger amount of fluid and need incising some of the time. Your Covid test from 2 days ago was positive. You seem to have mild symptoms at this point so just see how you do with staying well hydrated and medications as needed for cough and congestion. I am prescribing a short course of narcotic pain medication for you. These are potentially dangerous and addictive medications that should be used carefully. These medications may constipate you. Take an fnyg-dao-ztolhbp stool softener such as docusate twice daily with plenty of water while taking these medications. If you go 24 hours without a bowel movement, take vfdq-tah-aeylyii MiraLAX, per package instructions. Do not drink or drive while taking these medications. If you received narcotic or sedating medications while in the emergency depart ment do not drive for 24 hours. Store this medication in a safe, secure place and out of reach of children. It is a violation of federal law to give or sell this medication to another person or to use in a manner other than prescribed. The ED will not refill narcotic prescriptions, including prescriptions lost or stolen. You can dispose of unwanted medications at the [facility]'s office or at several pharmacies such as [email or web address]. Discharge Date/Time: 04/13/21 11:35
[2021-04-13] MEDS ORDERED: oxyCODONE 5 MG TABLET PO STA (10:51)
[2021-04-13] MEDS ORDERED: ACETAMINOPHEN 325 MG TABLET PO STA (10:51)
[2021-04-13] MEDS ORDERED: SULFAMETH/TRIMETH DS 800/160 MG TABLET PO STA (10:51)
[2021-04-13] MEDS ORDERED: NAPROXEN 250 MG TABLET PO STA (10:51)
[2021-04-13 11:25] VITALS: BP 122/81
== END 2021-04-13 11:35 | disposition home or self-care (01) ==
LOC: ED 09:43
DX: K61.1 Rectal abscess (principal); U07.1 COVID-19; F17.200 Nicotine dependence, unspecified, uncomplicated
CPT/HCPCS: 99283; 99284; A9270

== ENCOUNTER 2021-05-01 09:41 | Outpatient (CLI) | payer MEDICAID ==
--- NOTE | 2021-05-01 15:16 | Ultrasound Report ---
PROCEDURE: Pelvic w/Transvaginal INDICATIONS: PELVIC PAIN TECHNIQUE: Real-time scanning was performed of the pelvic organs, with image documentation. Additional endovagi nal scanning was necessary due to incomplete visualization of the adnexal and endometrial structures by transabdominal scanning. COMPARISON: CT of abdomen and pelvis dated 12/14/2020 and 12/02/2020. FINDINGS: No pathologic free abdominal or pelvic fluid. Uterus: Anteverted uterus measures 8.1 x 4.1 x 4.9 cm in size. Heterogeneous myometrial echotexture i s seen. A pedunculated fibroid measures 1.1 x 1 x 0.9 cm in size is noted in anterior myometrium near midline. The endometrium measures 4.2 mm in combined thickness. No endometrial mass or fluid. Ovaries: Right ovary measures 3.4 x 1.6 x 4.5 cm in size with a volume of 12.8 cc. Left ovary measur es 4.1 x 2.7 x 2.8 cm in size with a volume of 16.2 cc. Less than 12 follicles are seen in each ovary . No solid-appearing ovarian lesion. Normal blood flow is seen in bilateral ovaries on color Doppler images. IMPRESSION: 1. Heterogeneous myometrium with pedunculated uterine fibroid as above. No endometrial mass or fluid. No pelvic free fluid. 2. Normal-appearing bilateral ovaries. Reviewed by: Benji Mckoy MD on 05/01/2021 3:14 PM PST Approved by: Benji Mckoy MD on 05/01/2021 3:14 PM PST Station ID: [id number]
== END 2021-05-01 09:42 | disposition home or self-care (01) ==
LOC: DI 09:41
PROVIDERS: ATTEND Nurse Practitioner
DX: D25.9 Leiomyoma of uterus, unspecified (principal)

== ENCOUNTER 2021-05-18 17:15 | Emergency (ER) | payer MEDICAID ==
[2021-05-18] MEDS ORDERED: DEXAMETHASONE 10 MG/ML VIAL PO STA (18:35)
[2021-05-18] MEDS ORDERED: CHERRY SYRUP 10 ML UDC PO ONE (18:35)
[2021-05-18] MEDS ORDERED: oxyCODONE 5 MG TABLET PO STA (18:35)
--- NOTE | 2021-05-18 18:40 | ED Physician Documentation ---
History of Present Illness - Stated complaint Stated Complaint: LT ARM PX/SOA - Chief complaint Chief Complaint: Ext Problem - History obtained from History obtained from: Patient - History of Present Illness Timing: How many days ago (5) Pain level max: 8 Pain level now: 8 - Additonal information Additional information: Patient is a 35-year-old female who presents to the emergency department with left sided neck and arm pain. Ongoing for the past 5 days. Feels like a shooting pain from her neck down her left arm. Patient was prescribed meloxicam and Flexeril. She states it is not helping the pain. 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: Other Derm: Other - Present Medications Home Medications: Ambulatory Orders Medication Instructions Recorded Confirmed Naproxen 500 mg PO BID 10 Days #20 tab.sr 04/13/21 05/18/21 Oxycodone HCl/Acetaminophen 1 each PO Q6H PRN #14 tablet 04/13/21 05/18/21 [Percocet 5-325 mg Tablet] Cyclobenzaprine [Flexeril] 05/18/21 Gabapentin [Neurontin] 300 mg PO TID #90 cap 05/18/21 Meloxicam [Mobic] 05/18/21 05/18/21 Oxycodone HCl/Acetaminophen 1 - 2 each PO Q6H PRN #14 tablet 05/18/21 [Percocet 5-325 mg Tablet] methocarbamoL [Robaxin] 500 mg PO Q6H PRN #20 tablet 05/18/21 predniSONE [Deltasone] 40 mg PO DAILY #10 tablet 05/18/21 - Allergies Allergies/Adverse Reactions: Allergies Allergy/AdvReac Type Severity Reaction Status Date / Time ibuprofen AdvReac Headache Verified 03/03/22 17:26 - Social History Does the pt smoke?: Yes Smoking Status: Current every day smoker Does the pt drink ETOH?: Yes Does the pt have substance abuse?: Yes - Immunizations Immunizations are current?: No Immunizations: Other immun not current - POLST Patient has POLST: No PD ED PE NORMAL - Vitals Vital signs reviewed: Yes - General General: Alert and oriented X 3, No acute distress - HEENT HEENT: PERRL, Moist mucous membranes - Neck Neck: Supple, no meningeal sign, No bony TTP, Other (Paraspinal spasm left posterior cervical. Positive Spurling test) - Cardiac Cardiac: RRR, Strong equal pulses - Respiratory Respiratory: No respiratory distress, Clear bilaterally - Abdomen Abdomen: Soft, Non tender, Non distended - Back Back: No spinal TTP - Derm Derm: Warm and dry - Extremities Extremities: No deformity, No edema, No calf tenderness / cord - Neuro Neuro: Alert and oriented X 3, tobacco checkout clerk 2-12 intact, No motor deficit, No sensory deficit, Normal speech Eye Opening: Spontaneous Motor: Obeys Commands Verbal: Oriented GCS Score: 15 - Psych Psych: Normal mood, Normal affect Results - Vitals Vitals: Vital Signs - 24 hr 05/18/21 05/18/21 05/18/21 17:26 17:57 18:51 Temperature 36.5 C Heart Rate 92 78 84 Respiratory 16 18 16 Rate Blood Pressure 128/79 123/83 H 133/85 H O2 Saturation 98 100 100 Oxygen O2 Source Room air PD MEDICAL DECISION MAKING - ED course Complexity details: considered differential, d/w patient ED course: Patient with what appears to be cervical radiculopathy. We will trial on steroids, gabapentin and muscle relaxants. We will also place on pain medication. We will have the patient follow-up with her PCP for further care. No indication for emergent imaging at this time. No evidence of DVT, epidural abscess. Does not use any IV drugs. No fevers. I am prescribing a short course of short-acting opioid pain medication for this patient. I have reviewed the patients DIRECTORY ASSISTANCE OPERATOR and no concerning findings were noted. I have discussed that the opioids are for short term therapy only, and will not be refilled from the ED. patient counseled regarding signs and symptoms for which I believe and urgent re-evaluation would be necessary. Patient with good understanding of and agreement to plan and is comfortable going home at this time This document was made in part using voice recognition software. While efforts are made to proofread this document, sound alike and grammatical errors may occur. Departure - Departure Disposition: 01 Home, Self Care Clinical Impression: Cervical radiculopathy Condition: Good Instructions: ED Cervical Radiculopathy Follow-Up: Dominga Bowser ARNP [Primary Care Provider] - Within 1 week Prescriptions: predniSONE [Deltasone] 40 mg PO DAILY #10 tablet Gabapentin [Neurontin] 300 mg PO TID #90 cap Oxycodone HCl/Acetaminophen [Percocet 5-325 mg Tablet] 1 - 2 each PO Q6H PRN #14 tablet PRN Reason: pain methocarbamoL [Robaxin] 500 mg PO Q6H PRN #20 tablet PRN Reason: muscle spasm Comments: Please follow-up with your doctor for further care. Return if you worsen. Your prescriptions were sent to [facility] in [place]. I am prescribing a short course of narcotic pain medication for you. These are potentially dangerous and addictive medications that should be used carefully. These medications may constipate you. Take an qzcx-wjw-ndicshg stool softener (docusate) twice daily with plenty of water while taking these medications. If you go 24 hours without a bowel movement, take wqiu-ohd-rjghegi miralax, per package instructions. Do not drink or drive while taking these medications. If you received narcotic or sedating medications while in the emergency department, do not drive for 24 hours. Store this medication in a safe, secure place and out of reach of children. It is a violation of federal law to give or sell this medication to another person or to use in a manner other than prescribed. The ED will not refill narcotic prescriptions, including prescriptions lost or stolen. To dispose of unwanted medications: 1. [facility] at [address] in [place] has a medication drop box. They accept prescription medications (in pill form) Saturday through Saturday 9:00 a.m. to 5:00 p.m. 2. [facility] accepts prescription medications (in pill form only) for disposal year round. Call for more information. 3. Contact the [facility] for the next [facility] sponsored prescription drug collection event. , [phone], or [phone]; Discharge Date/Time: 05/18/21 18:54
[2021-05-18 18:53] VITALS: BP 133/85
== END 2021-05-18 18:54 | disposition home or self-care (01) ==
LOC: ED 17:15
DX: M54.12 Radiculopathy, cervical region (principal); F17.200 Nicotine dependence, unspecified, uncomplicated
CPT/HCPCS: 99283; 99284; A9270

== ENCOUNTER 2021-06-02 23:54 | Emergency (ER) | payer MEDICAID ==
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
[2021-06-03] MEDS ORDERED: CYCLOBENZAPRINE 10 MG TABLET PO STA (00:50)
[2021-06-03] MEDS ORDERED: LORazepam 0.5 MG TABLET PO STA (00:51)
[2021-06-03] MEDS ORDERED: ACETAMINOPHEN 325 MG TABLET PO STA (00:51)
[2021-06-03 01:15] LABS: BASOPHILS % (AUTO) 0.4 %; EOSINOPHILS # (AUTO) 0.2 10^3/uL (0.0-0.7); EOSINOPHILS % (AUTO) 1.7 %; HCT - HEMATOCRIT 41.2 % (37.0-47.0); HGB - HEMOGLOBIN 13.7 g/dL (12.0-16.0); LYMPHOCYTES # (AUTO) 1.9 10^3/uL (1.5-3.5); LYMPHOCYTES % (AUTO) 20.6 %; MEAN CORPUSCULAR HEMOGLOBIN 31.4 pg (27.0-31.0); MEAN CORPUSCULAR HGB CONC 33.3 g/dL (32.0-36.0); MEAN CORPUSCULAR VOLUME 94.3 fL (81.0-99.0); MEAN PLATELET VOLUME 9.9 fL (7.9-10.8); MONOCYTES # (AUTO) 0.8 10^3/uL (0.0-1.0); MONOCYTES % (AUTO) 8.5 %; NEUTROPHILS # (AUTO) 6.3 10^3/uL (1.5-6.6); NEUTROPHILS % (AUTO) 68.6 %; PLT - PLATELET COUNT 270 10^3/uL (130-450); RED BLOOD COUNT 4.37 10^6/uL (4.20-5.40); RED CELL DISTRIBUTION WIDTH 13.5 % (12.0-15.0); WHITE BLOOD COUNT 9.2 x10^3/uL (4.8-10.8)
[2021-06-03 01:26] LABS: ACETAMINOPHEN < 10 ug/mL (10-30); ALBUMIN 4.6 g/dL (3.2-5.5); ALBUMIN/GLOBULIN RATIO 1.4 (1.0-2.2); ALKALINE PHOSPHATASE 73 IU/L (42-121); ALT ALANINE AMINOTRANSFERASE 22 IU/L (10-60); AST ASPARTATE AMINOTRANSFERASE 19 IU/L (10-42); BILIRUBIN,TOTAL 0.8 mg/dL (0.2-1.0); BUN - BLOOD UREA NITROGEN 9 mg/dL (6-20); CALCIUM 9.4 mg/dL (8.5-10.3); CARBON DIOXIDE - CO2 24 mmol/L (21-32); CHLORIDE 102 mmol/L (101-111); CREATININE 0.7 mg/dL (0.4-1.0); ETOH - ETHANOL < 5.0 mg/dL; GFR - MDRD 115 (>89); GLUCOSE 90 mg/dL (70-100); LIPASE 64 U/L (22-51); POTASSIUM 3.5 mmol/L (3.5-5.0); SALICYLATE < 6.0 mg/dL; SODIUM 135 mmol/L (135-145); TOTAL PROTEIN 7.9 g/dL (6.7-8.2)
[2021-06-03 03:17] LABS: MUDS CUTOFF CONCENTRATIONS CUTOFF CONC BELOW:
[2021-06-03 03:20] LABS: BILIRUBIN,URINE NEGATIVE (NEGATIVE); GLUCOSE, URINE (UA) NEGATIVE (NEGATIVE); KETONES,URINE (UA) TRACE mg/dL (NEGATIVE); LEUKOCYTE ESTERASE, URINE NEGATIVE (NEGATIVE); NITRITE,URINE NEGATIVE (NEGATIVE); OCCULT BLOOD,URINE NEGATIVE (NEGATIVE); PROTEIN,URINE NEGATIVE (NEGATIVE); UROBILINOGEN,URINE 0.2 (NORMAL) E.U./dL (NORMAL)
[2021-06-03 03:23] LABS: CLARITY,URINE CLEAR (CLEAR); HCG UR QUAL NEGATIVE
[2021-06-03 03:33] LABS: AMPHETAMINE SCREEN,URINE NEGATIVE (NEGATIVE); BARBITURATE SCREEN,UR NEGATIVE (NEGATIVE); BENZODIAZEPINES SCREEN, URINE NEGATIVE (NEGATIVE); COCAINE SCREEN URINE NEGATIVE (NEGATIVE); METHADONE SCREEN, URINE NEGATIVE (NEGATIVE); METHAMPHETAMINES SCREEN, URINE NEGATIVE (NEGATIVE); OPIATE SCREEN, URINE NEGATIVE (NEGATIVE); OXYCODONE SCREEN, URINE NEGATIVE (NEGATIVE); PROPOXYPHENE SCREEN, URINE NEGATIVE (NEGATIVE); THC CANNABINOID SCREEN, URINE POSITIVE (NEGATIVE); TRICYCLIC ANTIDEPRESSANT,URINE POSITIVE (NEGATIVE)
[2021-06-03 07:35] VITALS: BP 137/78
== END 2021-06-03 09:08 ==
LOC: ED 23:54
DX: F31.9 Bipolar disorder, unspecified (principal); M25.512 Pain in left shoulder; F41.9 Anxiety disorder, unspecified; F17.200 Nicotine dependence, unspecified, uncomplicated; Z20.822 Contact with and (suspected) exposure to COVID-19
CPT/HCPCS: 36415; 80053; 80306; 80307; 80320; 80329; 81003; 81025; 83690; 84443; 85025; 87635; 93005; 99283; 99285; A9270; 81001; 87086

== ENCOUNTER 2021-06-03 09:01 | Outpatient (CLI) | payer MEDICAID | END 2021-06-03 09:02 | LOC: EMS 09:01 | PROVIDERS: ATTEND Emergency Medicine | DX: R45.851 Suicidal ideations (principal) | CPT/HCPCS: A0425; A0428 ==

== ENCOUNTER 2021-06-24 10:14 | Outpatient (CLI) | payer MEDICAID ==
--- NOTE | 2021-06-24 12:11 | XRAY Report ---
PROCEDURE: Knee 3 View RT INDICATIONS: KNEE JOINT PAIN >3 MONTHS, RIGHT TECHNIQUE: 3 views of the right knee(s) were acquired. COMPARISON: None. FINDINGS: Bones: No fractures or dislocations. No suspicious bony lesions. There is mild medial femorotibial joint space narrowing, with associated degenerative change with sub chondral sclerosis and osteophyte formation. Soft tissues: There is a mild to moderate joint effusion. No suspicious soft tissue calcifications. IMPRESSION: Mild to moderate joint effusion. Mild medial femorotibial joint space narrowing seen. If it would be helpful for clinical management decision making, please consider a dedicated, schedule d knee MRI for further evaluation (assuming that there is no contraindication). Reviewed by: Mode Molina MD on 06/24/2021 11:10 AM DANIA Approved by: Mode Molina MD on 06/24/2021 11:10 AM DANIA Station ID: [id number]
== END 2021-06-24 10:15 | disposition home or self-care (01) ==
LOC: DI.N 10:14
PROVIDERS: ATTEND Nurse Practitioner
DX: M17.11 Unilateral primary osteoarthritis, right knee (principal); M25.461 Effusion, right knee

== ENCOUNTER 2021-09-25 17:05 | Outpatient (CLI) | payer MEDICAID ==
[2021-09-25 21:08] LABS: BASOPHILS % (AUTO) 0.3 %; EOSINOPHILS # (AUTO) 0.1 10^3/uL (0.0-0.7); EOSINOPHILS % (AUTO) 0.9 %; HCT - HEMATOCRIT 37.7 % (37.0-47.0); HGB - HEMOGLOBIN 12.7 g/dL (12.0-16.0); LYMPHOCYTES # (AUTO) 3.1 10^3/uL (1.5-3.5); LYMPHOCYTES % (AUTO) 26.9 %; MEAN CORPUSCULAR HGB CONC 33.7 g/dL (32.0-36.0); MEAN PLATELET VOLUME 11.2 fL (7.9-10.8); MONOCYTES # (AUTO) 0.9 10^3/uL (0.0-1.0); MONOCYTES % (AUTO) 7.9 %; NEUTROPHILS # (AUTO) 7.4 10^3/uL (1.5-6.6); NEUTROPHILS % (AUTO) 63.7 %; PLT - PLATELET COUNT 243 10^3/uL (130-450); RED CELL DISTRIBUTION WIDTH 12.5 % (12.0-15.0); WHITE BLOOD COUNT 11.6 x10^3/uL (4.8-10.8)
[2021-09-25 21:32] LABS: ALBUMIN 4.3 g/dL (3.2-5.5); ALBUMIN/GLOBULIN RATIO 1.5 (1.0-2.2); ALKALINE PHOSPHATASE 72 IU/L (42-121); ALT ALANINE AMINOTRANSFERASE 16 IU/L (10-60); AST ASPARTATE AMINOTRANSFERASE 23 IU/L (10-42); BILIRUBIN,TOTAL 0.5 mg/dL (0.2-1.0); BUN - BLOOD UREA NITROGEN 9 mg/dL (6-20); CALCIUM 9.6 mg/dL (8.5-10.3); CARBON DIOXIDE - CO2 25 mmol/L (21-32); CHLORIDE 102 mmol/L (101-111); CHOL/HDL RATIO 3.5 (<4.4); CHOLESTEROL 166 mg/dL; GFR - MDRD 76 (>89); GLUCOSE 79 mg/dL (70-100); HDL CHOLESTEROL 47 mg/dL; LDL CHOLESTEROL,CALCULATED 100 mg/dL; LDL/HDL RATIO 2.1 (<4.4); POTASSIUM 3.5 mmol/L (3.5-5.0); SODIUM 136 mmol/L (135-145); TOTAL PROTEIN 7.2 g/dL (6.7-8.2); TRIGLYCERIDES 97 mg/dL; VALPROIC ACID (DEPAKOTE) 71.2 ug/mL; VLDL CHOLESTEROL 19 mg/dL
[2021-09-26 13:53] LABS: ESTIMATED AVERAGE GLUCOSE 111 mg/dL (70-100); HEMOGLOBIN A1c% 5.5 % (4.27-6.07)
== END 2021-09-25 17:06 | disposition home or self-care (01) ==
LOC: LAB.N 17:05
DX: F31.9 Bipolar disorder, unspecified (principal); Z79.899 Other long term (current) drug therapy
CPT/HCPCS: 36415; 80053; 80061; 80164; 83036; 83721; 85025

== ENCOUNTER 2021-11-14 08:00 | Outpatient (CLI) | payer MEDICAID ==
[2021-11-14 18:14] LABS: BILIRUBIN,URINE NEGATIVE (NEGATIVE); GLUCOSE, URINE (UA) NEGATIVE (NEGATIVE); KETONES,URINE (UA) NEGATIVE (NEGATIVE); LEUKOCYTE ESTERASE, URINE NEGATIVE (NEGATIVE); NITRITE,URINE NEGATIVE (NEGATIVE); OCCULT BLOOD,URINE TRACE-INTA (NEGATIVE); PH,URINE 7.5 PH (5.0-7.5); PROTEIN,URINE NEGATIVE (NEGATIVE); UROBILINOGEN,URINE 0.2 (NORMAL) E.U./dL (NORMAL)
[2021-11-14 18:24] LABS: BACTERIA,URINE Many /HPF (None Seen); CLARITY,URINE CLEAR (CLEAR); RBC,URINE None Seen /HPF (0-5); SQUAMOUS EPITHELIAL CELL,UR MANY Squamous (<= Few); WBC,URINE 0-3 /HPF (0-5)
[2021-11-14 18:25] LABS: BASOPHILS % (AUTO) 0.2 %; EOSINOPHILS # (AUTO) 0.1 10^3/uL (0.0-0.7); EOSINOPHILS % (AUTO) 0.7 %; HCT - HEMATOCRIT 42.1 % (37.0-47.0); HGB - HEMOGLOBIN 13.9 g/dL (12.0-16.0); LYMPHOCYTES # (AUTO) 2.3 10^3/uL (1.5-3.5); LYMPHOCYTES % (AUTO) 26.8 %; MEAN CORPUSCULAR HEMOGLOBIN 30.6 pg (27.0-31.0); MEAN CORPUSCULAR VOLUME 92.7 fL (81.0-99.0); MEAN PLATELET VOLUME 10.3 fL (7.9-10.8); MONOCYTES # (AUTO) 0.4 10^3/uL (0.0-1.0); MONOCYTES % (AUTO) 4.9 %; NEUTROPHILS # (AUTO) 5.7 10^3/uL (1.5-6.6); NEUTROPHILS % (AUTO) 67.2 %; PLT - PLATELET COUNT 298 10^3/uL (130-450); RED BLOOD COUNT 4.54 10^6/uL (4.20-5.40); RED CELL DISTRIBUTION WIDTH 13.7 % (12.0-15.0); WHITE BLOOD COUNT 8.4 x10^3/uL (4.8-10.8)
[2021-11-14 18:30] LABS: ALBUMIN 4.3 g/dL (3.2-5.5); ALBUMIN/GLOBULIN RATIO 1.2 (1.0-2.2); BILIRUBIN,TOTAL 0.4 mg/dL (0.2-1.0); CALCIUM 9.3 mg/dL (8.5-10.3); CREATININE 0.7 mg/dL (0.4-1.0); POTASSIUM 3.9 mmol/L (3.5-5.0); TOTAL PROTEIN 7.9 g/dL (6.7-8.2)
[2021-11-14 18:37] LABS: HCG,QUALITATIVE BLOOD NEGATIVE
== END 2021-11-14 23:59 | disposition home or self-care (01) ==
LOC: LAB.N 08:00
PROVIDERS: ATTEND Nurse Practitioner
DX: B34.9 Viral infection, unspecified (principal)
CPT/HCPCS: 36415; 80053; 81001; 82150; 83690; 84703; 85025; 87086

== ENCOUNTER 2022-02-07 08:00 | Outpatient (CLI) | payer MEDICAID ==
[2022-02-07 22:01] LABS: BACTERIAL VAGINOSIS DNA NEGATIVE (NEGATIVE); CANDIDA GLABRATA DNA NEGATIVE (NEGATIVE); CANDIDA GROUP DNA NEGATIVE (NEGATIVE); CANDIDA KRUSEI DNA NEGATIVE (NEGATIVE); TRICHOMONAS VAGINALIS DNA NEGATIVE (NEGATIVE)
[2022-02-07 23:12] LABS: CHLAMYDIA TRACHOMATIS DNA NEGATIVE (NEGATIVE); NEISSERIA GONORRHOEAE DNA NEGATIVE (NEGATIVE); TRICHOMONAS VAGINALIS DNA NEGATIVE (NEGATIVE)
== END 2022-02-07 23:59 | disposition home or self-care (01) ==
LOC: LAB 08:00
PROVIDERS: ATTEND Nurse Practitioner
DX: N89.8 Other specified noninflammatory disorders of vagina (principal)
CPT/HCPCS: 81514; 87491; 87591; 87661

== ENCOUNTER 2022-06-19 02:16 | Emergency (ER) | payer MEDICAID ==
[2022-06-19] MEDS ORDERED: ACETAMINOPHEN 500 MG TABLET PO STA (02:45)
[2022-06-19] MEDS ORDERED: predniSONE 20 MG TABLET PO STA (02:46)
[2022-06-19] MEDS ORDERED: LIDOCAINE PATCH 5% TOP STA (02:46)
--- NOTE | 2022-06-19 02:56 | ED Physician Documentation ---
PD HPI BACK PAIN - Stated complaint Stated Complaint: LFT SIDE NUMBNESS - Chief complaint Chief Complaint: Back Pain - History obtained from History obtained from: Patient - Additional information Additional information: Patient is a 36-year-old female presenting for evaluation of left buttock pain that radiates into her left leg. 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 She denies bowel or bladder incontinence, fever, IV drug use, known malignancy. She denies Chest pain, shortness of breath, abdominal pain, dysuria. 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: Ovarian cysts : Frequency HEENT: None Psych: Depression, Anxiety, Panic attacks Musculoskeletal: None Derm: None - Past Surgical History Past Surgical History: Yes /ATMOSPHERIC PHYSICS PROFESSOR: Other Derm: Other - Present Medications Home Medications: Ambulatory Orders Medication Instructions Recorded Confirmed Benztropine [Cogentin] 0.5 mg PO BID PRN 12/01/21 12/01/21 Divalproex Sodium [Depakote ER] 1,000 mg PO HS 12/01/21 12/01/21 Docusate Sodium [Dok] 100 mg PO DAILY PRN 12/01/21 12/01/21 OLANZapine [Zyprexa] 15 mg PO DAILY 12/01/21 12/01/21 Trazodone HCl 100 mg PO HS PRN 12/01/21 12/01/21 hydrOXYzine pamoate [Hydroxyzine 50 mg PO QID 12/01/21 12/01/21 Pamoate] Lidocaine Patch 5% [Lidoderm Patch] 1 patch TOP DAILY PRN #10 patch 06/19/22 predniSONE [Deltasone] 20 mg PO [id number] #21 tab 06/19/22 - Allergies Allergies/Adverse Reactions: Allergies Allergy/AdvReac Type Severity Reaction Status Date / Time ibuprofen AdvReac Headache Verified 12/01/21 12:48 - Social History Does the pt smoke?: Yes Smoking Status: Current every day smoker Does the pt drink ETOH?: Yes Does the pt have substance abuse?: Yes - Immunizations Immunizations are current?: No Immunizations: Other immun not current - POLST Patient has POLST: No PD ED PE NORMAL - General General: Alert and oriented X 3, No acute distress, Well developed/nourished - HEENT HEENT: Atraumatic - Neck Neck: Supple, no meningeal sign - Cardiac Cardiac: RRR, Strong equal pulses - Respiratory Respiratory: No respiratory distress, Clear bilaterally - Abdomen Abdomen: Soft, Non tender, Non distended - Back Back: No spinal TTP, Other - Derm Derm: Warm and dry, No rash - Extremities Extremities: No deformity (Tenderness into left buttock), Normal ROM s pain - Neuro Neuro: Alert and oriented X 3, No motor deficit, No sensory deficit, Normal speech Results - Vitals Vitals: Vital Signs - 24 hr 06/19/22 06/19/22 02:27 03:42 Temperature 37.1 C 37.1 C Heart Rate 100 94 Respiratory 18 17 Rate Blood Pressure 116/93 H 142/84 H O2 Saturation 96 100 Oxygen O2 Source Room air PD Medical Decision Making - ED course Complexity details: re-evaluated patient ED course: Patient presenting for evaluation of buttock pain radiating into the left leg.She did lift something heavy recently but otherwise denies any known trauma or injury.She has no red flag signs or symptoms in regards to back pain warranting emergent imaging.Her exam does not suggest cord compression.She is ambulating here.No neurovascular deficits noted on exam. Patient was started on prednisone and also given lidocaine patch and Tylenol with some improvement in her symptoms. She was given a small amount of pain medication to use only as needed. She was counseled on the need for close follow-up with PCP as well as advised on concerning symptoms to return for. Departure - Departure Disposition: 01 Home, Self Care Clinical Impression: Sciatic leg pain Condition: Stable Instructions: ED Sciatica Prescriptions: predniSONE [Deltasone] 20 mg PO [id number] #21 tab Lidocaine Patch 5% [Lidoderm Patch] 1 patch TOP DAILY PRN #10 patch PRN Reason: pain Comments: I believe your symptoms are related to a pinched nerve in your low back that is irritated. I am going to start you on a course of steroids as well as Sent a prescription for lidocaine patches to [facility] in [place]. I have sent you home with a small amount of narcotic pain medications. Please do not drive while taking these medications. I would also recommend continuing with anti- inflammatories such as acetaminophen Or naproxen if you are able to take that. You may want to try ice or heat to see if one feels better than the other. I would also recommend close follow-up with your primary care doctor. Return to the emergency department if you develop any new or worsening symptoms. Forms: Activity restrictions Discharge Date/Time: 06/19/22 03:47
[2022-06-19] MEDS ORDERED: oxyCODONE/ACET 5/325 Prepack 4 PO STA (03:28)
[2022-06-19 03:47] VITALS: BP 142/84
== END 2022-06-19 03:47 | disposition home or self-care (01) ==
LOC: ED 02:16
DX: M54.32 Sciatica, left side (principal); F17.200 Nicotine dependence, unspecified, uncomplicated
CPT/HCPCS: 99282; 99283; A9270; J7512

== ENCOUNTER 2022-08-09 09:44 | Outpatient (CLI) | payer MEDICAID ==
[2022-08-09 11:54] LABS: BASOPHILS % (AUTO) 0.4 %; EOSINOPHILS # (AUTO) 0.2 10^3/uL (0.0-0.7); EOSINOPHILS % (AUTO) 1.7 %; HCT - HEMATOCRIT 41.3 % (37.0-47.0); HGB - HEMOGLOBIN 13.5 g/dL (12.0-16.0); LYMPHOCYTES # (AUTO) 2.4 10^3/uL (1.5-3.5); LYMPHOCYTES % (AUTO) 24.8 %; MEAN CORPUSCULAR HEMOGLOBIN 30.3 pg (27.0-31.0); MEAN CORPUSCULAR HGB CONC 32.7 g/dL (32.0-36.0); MEAN CORPUSCULAR VOLUME 92.8 fL (81.0-99.0); MEAN PLATELET VOLUME 10.3 fL (7.9-10.8); MONOCYTES # (AUTO) 0.5 10^3/uL (0.0-1.0); MONOCYTES % (AUTO) 5.4 %; NEUTROPHILS # (AUTO) 6.4 10^3/uL (1.5-6.6); NEUTROPHILS % (AUTO) 67.3 %; PLT - PLATELET COUNT 281 10^3/uL (130-450); RED BLOOD COUNT 4.45 10^6/uL (4.20-5.40); RED CELL DISTRIBUTION WIDTH 13.1 % (12.0-15.0); WHITE BLOOD COUNT 9.6 x10^3/uL (4.8-10.8)
[2022-08-09 12:22] LABS: ALKALINE PHOSPHATASE 71 IU/L (42-121); ALT ALANINE AMINOTRANSFERASE 11 IU/L (10-60); AST ASPARTATE AMINOTRANSFERASE 15 IU/L (10-42); BILIRUBIN,TOTAL 0.7 mg/dL (0.2-1.0); BUN - BLOOD UREA NITROGEN 6 mg/dL (6-20); CALCIUM 9.2 mg/dL (8.5-10.3); CARBON DIOXIDE - CO2 27 mmol/L (21-32); CHLORIDE 105 mmol/L (101-111); CREATININE 0.9 mg/dL (0.4-1.0); GFR - MDRD 85 (>89); GLUCOSE 164 mg/dL (70-100); POTASSIUM 3.8 mmol/L (3.5-5.0); SODIUM 135 mmol/L (135-145); VALPROIC ACID (DEPAKOTE) 58.6 ug/mL
[2022-08-09 12:25] LABS: ESTIMATED AVERAGE GLUCOSE 151 mg/dL (70-100); HEMOGLOBIN A1c% 6.9 % (4.27-6.07)
== END 2022-08-09 09:45 | disposition home or self-care (01) ==
LOC: LAB.N 09:44
PROVIDERS: ATTEND Nurse Practitioner Family
DX: F31.9 Bipolar disorder, unspecified (principal); Z79.899 Other long term (current) drug therapy
CPT/HCPCS: 36415; 80053; 80164; 83036; 84443; 85025

== ENCOUNTER 2023-08-31 15:31 | Outpatient (CLI) | payer MEDICAID | END 2023-08-31 23:59 | disposition critical access hospital (66) | LOC: EMS 15:31 | DX: R41.3 Other amnesia (principal); R47.81 Slurred speech; H54.7 Unspecified visual loss | CPT/HCPCS: A0425; A0429; A0999 ==

== ENCOUNTER 2023-08-31 15:54 | Emergency (ER) | payer MEDICAID ==
--- NOTE | 2023-08-31 16:11 | ED Physician Documentation ---
PD HPI ALTERED MENTAL STATUS - Stated complaint Stated Complaint: AMS - Chief complaint Chief Complaint: Neuro - Additional information Additional information: 38-year-old female history of ovarian cyst, depression, anxiety, panic attacks And bipolar disorder presents emergency department via EMS for concerns of impaired memory and amnesia on and off throughout the day. Patient says that she used cocaine a couple days ago does not exactly member when but she said that she has been experiencing a lot of at home stressors recently. It is difficult gathering complete history she tends to look around frequently will start to answer question and then forget what we are talking about. You can see mild tremors in both her hands and some twitching in her face. I asked her how her day went today she said that she remembers waking up feeding her cat and then does not have any memory after that. I asked her if there is a chance that she could have used cocaine today and she says that she is not sure and does not remember. She says that she is unsure who she got the cocaine from but also smoked weed and she said the weed was from a dispensary. Patient says that she has been experiencing increased suicidal ideation no homicidal ideation she is currently denies any plan right now and is willing to speak with someone and be transferred to psychiatric hospital for further hospitalization and evaluation. 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: Ovarian cysts : Frequency HEENT: None Psych: Depression, Anxiety, Panic attacks Musculoskeletal: None Derm: None - Past Surgical History Past Surgical History: Yes /BID ANALYST: Other Derm: Other - Present Medications Home Medications: Ambulatory Orders Medication Instructions Recorded Confirmed ARIPiprazole [Aripiprazole] 15 mg PO DAILY 08/31/23 08/31/23 Albuterol Sulfate [Proair 90 mcg IH Q4HR PRN 08/31/23 08/31/23 Digihaler] Benztropine Mesylate 2 mg PO DAILY 08/31/23 08/31/23 Divalproex Sodium [Depakote] 1,500 mg PO DAILY PM 08/31/23 08/31/23 QUEtiapine [SEROquel] 200 mg PO QPM 08/31/23 08/31/23 hydrOXYzine pamoate [Hydroxyzine 50 mg PO DAILY PM 08/31/23 08/31/23 Pamoate] lamoTRIgine [LaMICtal] 100 mg PO BID 08/31/23 08/31/23 traZODone [Desyrel] 100 mg PO HS 08/31/23 08/31/23 - Allergies Allergies/Adverse Reactions: Allergies Allergy/AdvReac Type Severity Reaction Status Date / Time ibuprofen AdvReac Headache Verified 08/31/23 15:59 - Social History Does the pt smoke?: Yes Smoking Status: Current every day smoker Does the pt drink ETOH?: Yes Does the pt have substance abuse?: Yes - Immunizations Immunizations are current?: No Immunizations: Other immun not current - POLST Patient has POLST: No PD ED PE NORMAL - Vitals Vital signs reviewed: Yes - General General: Alert and oriented X 3, No acute distress, Well developed/nourished - HEENT HEENT: PERRL PD ED PE EXPANDED - Psych Psych: Intoxicated / AOB, Depressed, Poor eye contact, Anxious, Flight of ideas, Delusions. No: Suicidal, Homicidal, Agitated, Combative, Manic, Auditory hallucinations, Visual hallucinations Results - Vitals Vitals: Vital Signs - 24 hr 08/31/23 08/31/23 08/31/23 15:59 16:13 18:45 Temperature 36.5 C Heart Rate 70 98 86 Respiratory 16 22 23 Rate Blood Pressure 142/103 H 142/103 H O2 Saturation 94 100 100 08/31/23 20:32 Temperature Heart Rate 84 Respiratory 17 Rate Blood Pressure 125/74 O2 Saturation 97 Oxygen O2 Source Room air - Labs Labs: Laboratory Tests 08/31/23 08/31/23 08/31/23 16:20 16:20 16:20 WBC 7.9 RBC 4.40 Hgb 13.1 Hct 40.9 MCV 93.0 MCH 29.8 MCHC 32.0 RDW 12.8 Plt Count 331 MPV 9.1 Neut # (Auto) 4.5 Lymph # (Auto) 2.5 Tate # (Auto) 0.7 Eos # (Auto) 0.2 Baso # (Auto) 0.0 Absolute Nucleated RBC 0.00 Nucleated RBC % 0.0 Sodium 137 Potassium 3.6 Chloride 101 Carbon Dioxide 29 Anion Gap 7.0 BUN 5 L Creatinine 1.0 Estimated GFR (MDRD) 75 L Glucose 100 Calcium 9.8 Magnesium 1.8 Total Bilirubin 0.6 AST 19 ALT 9 L Alkaline Phosphatase 78 Total Creatine Kinase 210 Total Protein 7.6 Albumin 4.4 Globulin 3.2 Albumin/Globulin Ratio 1.4 Lipase < 10 L TSH 0.61 Urine HCG, Qual Salicylates < 1.5 Urine Opiates Screen Ur Buprenorphine Scrn Ur Oxycodone Screen Urine Methadone Screen Acetaminophen 0.1 Ur Barbiturates Screen Ur Tricyclics Screen Ur Phencyclidine Scrn Ur Amphetamine Screen U Methamphetamines Scrn U Benzodiazepines Scrn Urine Cocaine Screen U Cannabinoids Screen Ur Drug Screen Comment Ethyl Alcohol < 10.0 08/31/23 08/31/23 17:15 17:15 WBC RBC Hgb Hct MCV MCH MCHC RDW Plt Count MPV Neut # (Auto) Lymph # (Auto) Tate # (Auto) Eos # (Auto) Baso # (Auto) Absolute Nucleated RBC Nucleated RBC % Sodium Potassium Chloride Carbon Dioxide Anion Gap BUN Creatinine Estimated GFR (MDRD) Glucose Calcium Magnesium Total Bilirubin AST ALT Alkaline Phosphatase Total Creatine Kinase Total Protein Albumin Globulin Albumin/Globulin Ratio Lipase TSH Urine HCG, Qual NEGATIVE Salicylates Urine Opiates Screen NEGATIVE Ur Buprenorphine Scrn NEGATIVE Ur Oxycodone Screen NEGATIVE Urine Methadone Screen NEGATIVE Acetaminophen Ur Barbiturates Screen NEGATIVE Ur Tricyclics Screen POSITIVE H Ur Phencyclidine Scrn NEGATIVE Ur Amphetamine Screen NEGATIVE U Methamphetamines Scrn NEGATIVE U Benzodiazepines Scrn NEGATIVE Urine Cocaine Screen POSITIVE H U Cannabinoids Screen POSITIVE H Ur Drug Screen Comment CUTOFF CONC BELOW: Ethyl Alcohol - Rads (name of study) Head CT without Relevant Findings:: Final report received, EMP independent interpretation of test, Other (No acute intracranial pathology, right maxillary sinus disease) PD Medical Decision Making - ED course ED course: 38-year-old female presents emergency department for concerns of amnesia. Patient says that she does not remember what happened today she is feeling very fearful and paranoid which is not normal for her. She does endorse some recent cocaine use labs are complete for further evaluation normal CBC no electrolyte abnormalities, negative hCG. Urinalysis did test positive for tricyclics, cocaine use, cannabinoids. Patient also endorses that she does have bipolar disorder does not miss any of her routine medications. Given that she has been having increased suicidal ideation lately she said that she would like to be evaluated and possibly admitted for mental health hospitalization due to her increased recent suicidal ideation and paranoia. She is medically cleared at this point in time. Head CT is negative for any intracranial abnormalities or findings. Report given to oncoming physician due to change of shift. Plan to keep the patient here over night as telepsych was not able to do their assessment because the patient was not able to stay awake. They advise to keep patient here overnight and re-eval tomorrow am for a psychiatic hospital admission. Pt denies any SI right now but does endorse in feeling recent increased SI these last couple days withut a plan, denies HI Departure - Departure Forms: PCP List
[2023-08-31 16:25] LABS: BASOPHILS % (AUTO) 0.4 %; EOSINOPHILS # (AUTO) 0.2 10^3/uL (0.0-0.7); EOSINOPHILS % (AUTO) 2.2 %; HCT - HEMATOCRIT 40.9 % (37.0-47.0); HGB - HEMOGLOBIN 13.1 g/dL (12.0-16.0); LYMPHOCYTES # (AUTO) 2.5 10^3/uL (1.5-3.5); MEAN CORPUSCULAR HEMOGLOBIN 29.8 pg (27.0-31.0); MEAN PLATELET VOLUME 9.1 fL (7.9-10.8); MONOCYTES # (AUTO) 0.7 10^3/uL (0.0-1.0); MONOCYTES % (AUTO) 8.4 %; NEUTROPHILS # (AUTO) 4.5 10^3/uL (1.5-6.6); NEUTROPHILS % (AUTO) 56.7 %; PLT - PLATELET COUNT 331 10^3/uL (130-450); RED CELL DISTRIBUTION WIDTH 12.8 % (12.0-15.0); WHITE BLOOD COUNT 7.9 x10^3/uL (4.8-10.8)
[2023-08-31] MEDS: SODIUM CHLORIDE 0.9% 1,000 ML IV ONE (16:25)
[2023-08-31 16:39] LABS: ALBUMIN 4.4 g/dL (3.2-5.5); ALBUMIN/GLOBULIN RATIO 1.4 (1.0-2.2); ALKALINE PHOSPHATASE 78 IU/L (42-121); ALT ALANINE AMINOTRANSFERASE 9 IU/L (10-60); AST ASPARTATE AMINOTRANSFERASE 19 IU/L (10-42); BILIRUBIN,TOTAL 0.6 mg/dL (0.2-1.0); BUN - BLOOD UREA NITROGEN 5 mg/dL (6-20); CALCIUM 9.8 mg/dL (8.5-10.3); CARBON DIOXIDE - CO2 29 mmol/L (21-32); CHLORIDE 101 mmol/L (101-111); GFR - MDRD 75 (>89); GLUCOSE 100 mg/dL (74-104); MAGNESIUM 1.8 mg/dL (1.7-2.3); POTASSIUM 3.6 mmol/L (3.5-4.5); SODIUM 137 mmol/L (135-145); TOTAL PROTEIN 7.6 g/dL (6.4-8.9)
[2023-08-31 16:41] LABS: LIPASE < 10 U/L (11-82)
[2023-08-31 16:58] LABS: ACETAMINOPHEN 0.1 ug/mL; CK- CREATINE KINASE 210 IU/L (30-223); ETOH - ETHANOL < 10.0 mg/dL
[2023-08-31 17:01] LABS: SALICYLATE < 1.5 mg/dL
[2023-08-31 17:13] LABS: THYROID STIMULATING HORMONE 0.61 uIU/mL (0.34-5.60)
[2023-08-31 17:21] LABS: HCG UR QUAL NEGATIVE
[2023-08-31 17:32] LABS: THC CANNABINOID SCREEN, URINE POSITIVE (NEGATIVE)
[2023-08-31 17:33] LABS: AMPHETAMINE SCREEN,URINE NEGATIVE (NEGATIVE); BARBITURATE SCREEN,UR NEGATIVE (NEGATIVE); BENZODIAZEPINES SCREEN, URINE NEGATIVE (NEGATIVE); BUPRENORPHINE SCREEN, URINE NEGATIVE (NEGATIVE); COCAINE SCREEN URINE POSITIVE (NEGATIVE); METHADONE SCREEN, URINE NEGATIVE (NEGATIVE); METHAMPHETAMINES SCREEN, URINE NEGATIVE (NEGATIVE); OPIATE SCREEN, URINE NEGATIVE (NEGATIVE); OXYCODONE SCREEN, URINE NEGATIVE (NEGATIVE); TRICYCLIC ANTIDEPRESSANT,URINE POSITIVE (NEGATIVE)
--- NOTE | 2023-08-31 18:09 | CT Report ---
PROCEDURE: Head WO INDICATIONS: AMS, amnesia TECHNIQUE: Noncontrast 4.5 mm thick angled axial sections acquired from the foramen magnum to the vertex. For r adiation dose reduction, the following was used: automated exposure control, adjustment of mA and/or kV according to patient size. COMPARISON: None. FINDINGS: Image quality: Excellent. CSF spaces: Basal cisterns are patent. No extra-axial fluid collections. Ventricles are normal in size and shape. Brain: No midline shift. No intracranial masses or hemorrhage. Herrmann-white matter interface is norm al. Skull and face: Calvarium and visualized facial bones are intact, without suspicious lesions. Sinuses: There is complete opacification of the visualized right maxillary sinus. Hyperdense material can be seen within the right maxillary sinus. The paranasal sinuses are otherwise unremarkable. No s ignificant abnormal mastoid air cell fluid can be seen. IMPRESSION: No acute intracranial pathology. Focal right maxillary sinus disease. Reviewed by: Mode Molina MD on 08/31/2023 5:07 PM DANIA Approved by: Mode Molina MD on 08/31/2023 5:07 PM DANIA Station ID: [id number]
--- NOTE | 2023-08-31 18:48 | TELEPSYCH PHYS NOTE ---
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 Pt's utox was positive for cocaine. Chief Complaint: "suicidal ideation" History of Present Illness: Pt is a 38yoF w/ unknown psychiatric hx who was brought in by EMS for amnesia and forgetting things. Pt states she feels like she is in a dream physically and mentally. She reports she had suicidal thoughts yesterday. She denies plan. Denies HI. Pt kept falling asleep throughout the interview. She states she is not ready to talk and wanted to rest. She kept sniffling during the interview as well. Had to terminate the interview early. Suicide Ideation - Homicide Ideation - Self Harm: Denies SI currently. - Medication & Allergies Home Medications: Ambulatory Orders Medication Instructions Recorded Confirmed ARIPiprazole [Aripiprazole] 15 mg PO DAILY 08/31/23 08/31/23 Albuterol Sulfate [Proair 90 mcg IH Q4HR PRN 08/31/23 08/31/23 Digihaler] Benztropine Mesylate 2 mg PO DAILY 08/31/23 08/31/23 Divalproex Sodium [Depakote] 1,500 mg PO DAILY PM 08/31/23 08/31/23 QUEtiapine [SEROquel] 200 mg PO QPM 08/31/23 08/31/23 hydrOXYzine pamoate [Hydroxyzine 50 mg PO DAILY PM 08/31/23 08/31/23 Pamoate] lamoTRIgine [LaMICtal] 100 mg PO BID 08/31/23 08/31/23 traZODone [Desyrel] 100 mg PO HS 08/31/23 08/31/23 Allergies/Adverse Reactions: Allergies Allergy/AdvReac Type Severity Reaction Status Date / Time ibuprofen AdvReac Headache Verified 08/31/23 15:59 - Drug & Alcohol History Dependence: Experiences withdrawal or developed tolerances: Cocaine - Medical History Psychiatric: reports: Depression, Anxiety, Panic attacks Neurological: reports: None Eyes, Ears, Nose, Throat: reports: None Cardiovascular: reports: MD Respiratory: reports: None Gastrointestinal: reports: Other Urinary: reports: Frequency CRIMINOLOGY TEACHER: reports: Ovarian cysts Musculoskeletal: reports: None Skin: reports: None - Surgical History /CRIMINOLOGY TEACHER: reports: Other Dermatologic: reports: Other - Mental Status Exam Appearance and Attire: hospital clothes, sitting up, sniffling Attitude and Behavior: initially cooperative, but then uncooperative, no PMA, no PMR Speech: normal rate, would stutter at times, was not fluent in her speech Affect and Mood: tired, congruent with mood Association and Thought Process: intact association, at times disorganized thought process Thought Content: denies SI, denies HI currently Perception: states she feels as if she is a dream Sensorium, memory and orientation: drowsy, memory acutely impacted Intellectual - Cognitive functioning: unable to assess with current mental status Insight and Judgement: poor insight, poor judgement Emotional and Behavioral Functioning: poor Ability to Self-Care: poor - Risk/Protective Factors Risk Factors: Substance intoxication or withdrawal Protective Factors / Internal: Identifies reasons for living Protective Factors / External: Responsibility to children - Plan Impression/Risk Assessment: Pt is a 38yoF w/ unknown psychiatric hx who was brought in by EMS for amnesia and forgetting things. Her urine drug screen was positive for cocaine. She kept falling asleep and sniffling throughout the interview. Eventually, pt states she wasn't ready to talk and wanted to rest. It appears as if pt is undergoing cocaine withdrawal. Would recommend allowing her to sleep overnight and reassess tomorrow morning. Treatment - Therapy Recommendations: - Allow her to remain overnight and have [facility] reassess tomorrow morning Pharmacological Recommendations: Continue home medication if she is taking them. - Time Spent & Provider Location Telepsych consultation conducted via videoconferencing: Yes List names and roles of persons who participated in consult: Jess Brooke MD Telepsych Provider Location: [place] Time Spent (Minutes): 30
--- NOTE | 2023-09-01 05:35 | ED Physician Documentation ---
ED Addendum - Addendum Addendum: 09/01/23 05:34 Patient received a signout from outgoing TANYA. Please see their documentation for further detail. Patient monitored carefully throughout the entirety of my shift with no acute events to report.
[2023-09-01 10:26] VITALS: O2SAT 100
[2023-09-01 13:23] LABS: B. PARAPERTUSSIS- RESP PCR PAN NOT DETECTED; B. PERTUSSIS- RESP PCR PANEL NOT DETECTED; C. PNEUMONIAE- RESP PCR PANEL NOT DETECTED; CORONAVIRUS 229E-RESP PCR NOT DETECTED; CORONAVIRUS HKU1-RESP PCR NOT DETECTED; CORONAVIRUS NL63-RESP PCR NOT DETECTED; CORONAVIRUS OC43-RESP PCR NOT DETECTED; HUMAN METAPNEUMOVIRUS NOT DETECTED; INFLUENZA A- RESP PCR PANEL NOT DETECTED; INFLUENZA B - RESP PCR PANEL NOT DETECTED; M. PNEUMONIAE- RESP PCR PANEL NOT DETECTED; PARAINFLUENZA VIRUS 1 NOT DETECTED; PARAINFLUENZA VIRUS 2 NOT DETECTED; PARAINFLUENZA VIRUS 3 NOT DETECTED; PARAINFLUENZA VIRUS 4 NOT DETECTED; RHINOVIRUS/ENTEROVIRUS NOT DETECTED; RSV- RESP PCR PANEL NOT DETECTED; SARS-CoV-2 -RESP PCR PANEL NOT DETECTED
[2023-09-01 19:03] VITALS: BP 140/95
== END 2023-09-01 19:07 ==
LOC: EDUNIT# → ED 15:54
DX: R45.851 Suicidal ideations (principal); F22 Delusional disorders; F17.200 Nicotine dependence, unspecified, uncomplicated
CPT/HCPCS: 36415; 70450; 80053; 80143; 80179; 80306; 81025; 82077; 82550; 83690; 83735; 84443; 85025; 87633; 99284; 99285; G0425; Q3014; 87637

== ENCOUNTER 2023-10-10 11:43 | Emergency (ER) | payer MEDICAID ==
[2023-10-10 11:54] VITALS: BP 127/75; O2SAT 100
--- NOTE | 2023-10-10 12:55 | ED Physician Documentation ---
History of Present Illness - Stated complaint Stated Complaint: SOA,DIZZINESS - Chief complaint Chief Complaint: Resp - Additonal information Additional information: 38-year-old female with history of Ovarian cyst, depression, anxiety, panic attacks presents emergency department for severe anxiety. Patient says that she was stung by a wasp last night she has no history of anaphylaxis to wasp or bee stings in the past. She said today when she started to think about being stung she started to experience some dizziness she also reports that her dizziness is chronic and has been followed by physical therapy for her chronic dizziness and says that her dizziness is not worse than it normally is she started them feeling a lot of anxiety and said that she wanted to come to the emergency department for reassurance.No periorbital swelling no rash no shortness of breath PD PAST MEDICAL HISTORY - Past Medical History Past Medical History: Yes Cardiovascular: [place] Respiratory: None Neuro: None Endocrine/Autoimmune: None GI: Other 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: Ovarian cysts : Frequency HEENT: None Psych: Depression, Anxiety, Panic attacks Musculoskeletal: None Derm: None - Past Surgical History Past Surgical History: Yes /[employer]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: Other Derm: Other - Present Medications Home Medications: Ambulatory Orders Medication Instructions Recorded Confirmed ARIPiprazole [Aripiprazole] 15 mg PO DAILY 08/31/23 08/31/23 Albuterol Sulfate [Proair 90 mcg IH Q4HR PRN 08/31/23 08/31/23 Digihaler] Benztropine Mesylate 2 mg PO DAILY 08/31/23 08/31/23 Divalproex Sodium [Depakote] 1,500 mg PO DAILY PM 08/31/23 08/31/23 QUEtiapine [SEROquel] 200 mg PO QPM 08/31/23 08/31/23 hydrOXYzine pamoate [Hydroxyzine 50 mg PO DAILY PM 08/31/23 08/31/23 Pamoate] lamoTRIgine [LaMICtal] 100 mg PO BID 08/31/23 08/31/23 traZODone [Desyrel] 100 mg PO HS 08/31/23 08/31/23 - Allergies Allergies/Adverse Reactions: Allergies Allergy/AdvReac Type Severity Reaction Status Date / Time diphenhydramine Allergy Hives Verified 10/10/23 11:51 [From Benadryl] ibuprofen AdvReac Headache Verified 08/31/23 15:59 - Social History Does the pt smoke?: Yes Smoking Status: Current every day smoker Does the pt drink ETOH?: Yes Does the pt have substance abuse?: Yes - Immunizations Immunizations are current?: No Immunizations: Other immun not current - POLST Patient has POLST: No PD ED PE NORMAL - Vitals Vital signs reviewed: Yes - General General: Alert and oriented X 3, No acute distress, Well developed/nourished - HEENT HEENT: Atraumatic - Neck Neck: Supple, no meningeal sign - Cardiac Cardiac: RRR - Respiratory Respiratory: No respiratory distress - Derm Derm: Normal color, Warm and dry, No rash Results - Vitals Vitals: Vital Signs - 24 hr 10/10/23 10/10/23 11:46 12:28 Temperature 36.4 C L Heart Rate 82 86 Respiratory 20 20 Rate Blood Pressure 127/75 O2 Saturation 100 100 Oxygen O2 Source Room air PD Medical Decision Making - ED course ED course: 38-year-old female presents emergency department for panic attack. Patient says that she was stung by wasp last night and started to feel anxious when she thought about it. She originally called out of work and is now starting to feel better but wanted to come into the emergency department for further evaluation. She was offered hydroxyzine for anxiety here but she says she has some at home s he says after being seen by a provider she is feeling significantly better and is feeling safe for discharge. Return precautions given patient is not in any acute respiratory distress she does not appear to have any physical signs or symptoms of anaphylaxis. Patient told to follow-up with her primary care provider for further evaluation as needed all questions answered patient safe for discharge. Departure - Departure Disposition: 01 Home, Self Care Clinical Impression: Panic attack Instructions: ED Panic Attack Forms: PCP List Discharge Date/Time: 10/10/23 12:56
[2023-10-10] MEDS: hydrOXYzine PAMOATE 25 MG CAPSULE PO STA (12:57)
== END 2023-10-10 12:56 | disposition home or self-care (01) ==
LOC: ED 11:43
DX: F41.0 Panic disorder [episodic paroxysmal anxiety] (principal); F17.200 Nicotine dependence, unspecified, uncomplicated
CPT/HCPCS: 99281; 99283